=== PATIENT | female | born 1990 | race Caucasian/White ===

== ENCOUNTER 2019-03-20 14:42 | Emergency (ER) | payer BC ==
[2019-03-20] MEDS ORDERED: Aspirin 81 MG Tab.Chew PO ONE (14:57)
[2019-03-20] MEDS ORDERED: Labetalol 100 MG/20 ML MDV IVPUSH ONE (14:57)
[2019-03-20] MEDS ORDERED: Sodium Chloride 0.9% 1,000 ML IV SCH (15:00)
[2019-03-20] MEDS ORDERED: LORazepam 2 MG/ML SDV IVPUSH ONE (15:33)
--- NOTE | 2019-03-20 15:35 | EDM.PDOC ---
ED HPI GENERAL MEDICAL PROBLEM - General Chief Complaint: Chest Pain Stated Complaint: CHEST PAIN Time Seen by Provider: 03/20/19 15:35 Source of Information: Reports: Patient - History of Present Illness INITIAL COMMENTS - FREE TEXT/NARRATIVE: HISTORY AND PHYSICAL: History of present illness: [Patient with history of anxiety and hypertension/preeclampsia per low presents with intermittent hypertension and chest pain over the last month currently pain is 2 out of 10 described as tight feeling] Pressure was initially elevated on arrival but did come down on its own without any treatment, then with discussion blood pressure did elevate again I provided Ativan at that time currently there is no chest pain patient is comfortable feeling much better and her blood pressure is 118/80, patient currently lives a house move as a stressor she is currently moving across town to a new house was purchased recently Currently has no fever nausea vomiting chills sweats no chest pain shortness breath headache dizziness palpitation no bowel or urine symptoms Review of systems: As per history of present illness and below otherwise all systems reviewed and negative. Past medical history: As per history of present illness and as reviewed below otherwise noncontributory. Surgical history: As per history of present illness and as reviewed below otherwise noncontributory. Social history: No reported history of drug or alcohol abuse. Family history: As per history of present illness and as reviewed below otherwise noncontributory. Physical exam: HEENT: Atraumatic, normocephalic, pupils reactive, negative for conjunctival pallor or scleral icterus, mucous membranes moist, throat clear, neck supple, nontender, trachea midline. Lungs: Clear to auscultation, breath sounds equal bilaterally, chest nontender. Heart: S1S2, regular, negative for clicks, rubs, or JVD. Abdomen: Soft, nondistended, nontender. Negative for masses or hepatosplenomegaly. Negative for costovertebral tenderness. Pelvis: Stable nontender. Genitourinary: Deferred. Rectal: Deferred. Extremities: Atraumatic, negative for cords or calf pain. Neurovascular unremarkable. Neuro: Awake, alert, oriented. Cranial nerves II through XII unremarkable. Cerebellum unremarkable. Motor and sensory unremarkable throughout. Exam nonfocal. Diagnostics: [TBC CMP UA troponin EKG Chest 1 view ] Therapeutics: Normal saline Aspirin 324 mg chewable ] Ativan 0.5 mg IV Ativan 0.5 mg by mouth twice a day when necessary #10 no refill Follow-up with primary care Impression: [Anxiety ] Definitive disposition and diagnosis as appropriate pending reevaluation and review of above. left chest, mid chest Pain Score (Numeric/FACES): 4 - Related Data Allergies Allergy/AdvReac Type Severity Reaction Status Date / Time latex Allergy Hives Verified 03/20/19 14:56 Home Meds: Home Meds Doxylamine Succinate [Unisom] 1 tab PO DAILY PRN 03/27/18 [History] Metoprolol Succinate 25 mg PO DAILY 03/20/19 [History] Norgestimate-Ethinyl Estradiol [Sprintec 28 Day Tablet] 1 mg PO DAILY 03/20/19 [ History] Sertraline [Zoloft] 50 mg PO DAILY 03/20/19 [History] Past Medical History - Past Health History Medical/Surgical History: Denies Medical/Surgical History HEENT History: Reports: None Cardiovascular History: Reports: None Respiratory History: Reports: None Gastrointestinal History: Reports: GERD Genitourinary History: Reports: UTI, Recurrent [employer] SURVEYOR History: Reports: Other (See Below), Other [employer] SURVEYOR History: history of HTN in with current and last Musculoskeletal History: Reports: None Neurological History: Reports: None Psychiatric History: Reports: Depression Endocrine/Metabolic History: Reports: None Hematologic History: Reports: None Immunologic History: Reports: None Oncologic (Cancer) History: Reports: None Dermatologic History: Reports: None - Infectious Disease History Infectious Disease History: Reports: None Social & Family History - Family History Family Medical History: Noncontributory - Tobacco Use Smoking Status *Q: Current Some Day Smoker Years of Tobacco use: 10 Packs/Tins Daily: 0.5 - Caffeine Use Caffeine Use: Reports: Coffee - Recreational Drug Use Recreational Drug Use: No ED ROS GENERAL - Review of Systems Review Of Systems: See Below ED EXAM, GENERAL - Physical Exam Exam: See Below Course - Vital Signs Last Recorded V/S: Last Vital Signs Temp 97.1 F 03/20/19 14:46 Pulse 78 03/20/19 16:20 Resp 16 03/20/19 16:20 BP 118/84 03/20/19 16:20 Pulse Ox 96 03/20/19 16:20 - Orders/Labs/Meds Orders: Active Orders 24 hr Category Date Time Status EKG Documentation Completion [RC] STAT Care 03/20/19 14:58 Active DRUG SCREEN, URINE [URCHEM] Stat Lab 03/20/19 14:58 Ordered UA RFX MAYO AND CULT IF INDIC [URIN] Stat Lab 03/20/19 14:58 Ordered Sodium Chloride 0.9% [Normal Saline] 1,000 ml Med 03/20/19 15:00 Active IV STAT Medication Orders Sodium Chloride (Normal Saline) 1,000 mls @ 125 mls/hr IV STAT JAY Last Admin: 03/20/19 15:26 Dose: 125 mls/hr Labs: Laboratory Tests 03/20/19 03/20/19 Range/Units 15:08 15:08 WBC 4.66 (4.0-11.0) K/uL RBC 4.67 (4.30-5.90) M/uL Hgb 14.8 (12.0-16.0) g/dL Hct 43.4 (36.0-46.0) % MCV 92.9 (80.0-98.0) fL MCH 31.7 (27.0-32.0) pg MCHC 34.1 (31.0-37.0) g/dL RDW Std Deviation 43.7 (28.0-62.0) fl RDW Coeff of Harman 13 (11.0-15.0) % Plt Count 267 (150-400) K/uL MPV 9.80 (7.40-12.00) fL Neut % (Auto) 41.9 L (48.0-80.0) % Lymph % (Auto) 47.4 H (16.0-40.0) % [place] % (Auto) 7.5 (0.0-15.0) % Eos % (Auto) 3.0 (0.0-7.0) % Baso % (Auto) 0.2 (0.0-1.5) % Neut # (Auto) 2.0 (1.4-5.7) K/uL Lymph # (Auto) 2.2 (0.6-2.4) K/uL [place] # (Auto) 0.4 (0.0-0.8) K/uL Eos # (Auto) 0.1 (0.0-0.7) K/uL Baso # (Auto) 0.0 (0.0-0.1) K/uL Nucleated RBC % 0.0 /100WBC Nucleated RBCs # 0 K/uL Sodium 139 (136-145) mmol/L Potassium 3.6 (3.5-5.1) mmol/L Chloride 106 (98-107) mmol/L Carbon Dioxide 22.0 (21.0-32.0) mmol/L BUN 11 (7.0-18.0) mg/dL Creatinine 0.7 (0.6-1.0) mg/dL Est Cr Clr Drug Dosing 100.98 mL/min Estimated GFR (MDRD) > 60.0 ml/min Glucose 103 (74-106) mg/dL Calcium 9.4 (8.5-10.1) mg/dL Total Bilirubin 0.6 (0.2-1.0) mg/dL AST 14 L (15-37) IU/L ALT 21 (14-63) IU/L Alkaline Phosphatase 55 (46-116) U/L Troponin I < 0.050 (0.000-0.056) ng/mL Total Protein 7.4 (6.4-8.2) g/dL Albumin 4.1 (3.4-5.0) g/dL Globulin 3.3 (2.6-4.0) g/dL Albumin/Globulin Ratio 1.2 (0.9-1.6) Meds: Medications Generic Name Dose Route Start Last Admin Trade Name Oskarq PRN Reason Stop Dose Admin Sodium Chloride 1,000 mls @ 125 mls/hr 03/20/19 15:00 03/20/19 15:26 Normal Saline IV 125 mls/hr STAT JAY Administration Discontinued Medications Generic Name Dose Route Start Last Admin Trade Name Freq PRN Reason Stop Dose Admin Aspirin 324 mg 03/20/19 14:57 03/20/19 15:24 Aspirin PO 03/20/19 14:58 324 mg ONETIME ONE Administration Labetalol HCl 20 mg 03/20/19 14:57 03/20/19 16:22 Normodyne IVPUSH 03/20/19 14:58 Not Given ONETIME ONE Protocol Lorazepam 0.5 mg 03/20/19 15:33 03/20/19 15:38 Ativan IVPUSH 03/20/19 15:34 0.5 mg ONETIME ONE Administration Departure - Departure Time of Disposition: 16:29 Disposition: Home, Self-Care 01 Condition: Good Clinical Impression: Anxiety - Discharge Information Referrals: PCP,Unknown [Primary Care Provider] - Forms: ED Department Discharge Additional Instructions: Medication as prescribed Return if symptoms persist or worsen Follow-up with primary care in 2 weeks sooner as needed The following information is given to patients seen in the emergency department who are being discharged to home. This information is to outline your options for follow-up care. We provide all patients seen in our emergency department with a follow-up referral. The need for follow-up, as well as the timing and circumstances, are variable depending upon the specifics of your emergency department visit. If you don't have a primary care physician on staff, we will provide you with a referral. We always advise you to contact your personal physician following an emergency department visit to inform them of the circumstance of the visit and for follow-up with them and/or the need for any referrals to a consulting specialist. The emergency department will also refer you to a specialist when appropriate. This referral assures that you have the opportunity for follow-up care with a specialist. All of these measure are taken in an effort to provide you with optimal care, which includes your follow-up. Under all circumstances we always encourage you to contact your private physician who remains a resource for coordinating your care. When calling for follow-up care, please make the office aware that this follow-up is from your recent emergency room visit. If for any reason you are refused follow-up, please contact the [facility] emergency department at and asked to speak to the emergency department charge nurse. - My Orders Last 24 Hours: My Active Orders 03/20/19 14:58 EKG Documentation Completion [RC] STAT DRUG SCREEN, URINE [URCHEM] Stat UA RFX MAYO AND CULT IF INDIC [URIN] Stat 03/20/19 15:00 Sodium Chloride 0.9% [Normal Saline] 1,000 ml IV STAT - Assessment/Plan Last 24 Hours: My Active Orders 03/20/19 14:58 EKG Documentation Completion [RC] STAT DRUG SCREEN, URINE [URCHEM] Stat UA RFX MAYO AND CULT IF INDIC [URIN] Stat 03/20/19 15:00 Sodium Chloride 0.9% [Normal Saline] 1,000 ml IV STAT
[2019-03-20 15:43] LABS: CHLORIDE,CL 106 mmol/L (98-107); SODIUM,NA 139 mmol/L (136-145)
--- NOTE | 2019-03-20 16:18 | CR ---
INDICATION: Chest pain, shortness of breath TECHNIQUE: Chest radiograph 1 view COMPARISON: None FINDINGS: Mediastinum: The mediastinum is normal in appearance. The heart silhouette is normal in size and morphology. Lung: Both lungs are unremarkable in appearance. No sign of pleural effusion seen. No pneumothorax is identified. IMPRESSION: 1. No acute cardiopulmonary disease is seen. Dictated by: Ephraim Johnson MD @ 03/20/2019 16:16:36 (Electronically Signed)
== END 2019-03-20 16:42 | disposition home or self-care (01) ==
LOC: MW.ED 14:42
DX: F41.9 Anxiety disorder, unspecified (principal); F17.210 Nicotine dependence, cigarettes, uncomplicated; Z91.040 Latex allergy status; Z79.899 Other long term (current) drug therapy
CPT/HCPCS: 36415; 71045; 80053; 84484; 85025; 93005; 96361; 96374; 99285; A9270; J2060; J3490; J7040

== ENCOUNTER 2021-05-09 17:33 | Observation (INO) | payer BC ==
[2021-05-09] MEDS ORDERED: cefTRIAXone 1 GM in Premix Bag 1 BAG IV ONE (19:02)
[2021-05-09] MEDS ORDERED: Lactated Ringers 1,000 ML IV SCH (19:15)
[2021-05-09] MEDS ORDERED: Acetaminophen 500 MG Tab PO ONE (19:44)
[2021-05-09] MEDS ORDERED: Aspirin 81 MG Tab.Chew PO ONE (22:32)
--- NOTE | 2021-05-09 23:09 | US ---
INDICATION: Right flank pain. Thirty-four weeks . TECHNIQUE: Ultrasound abdomen limited. Sonographic images of the kidneys and bladder were obtained using sierra-scale and color Doppler images. COMPARISON: Renal ultrasound dated 03/27/2018. FINDINGS: Right kidney: The right kidney measures 11.5 cm in length. No renal calculi or significant hydronephrosis is identified. Left kidney: The left kidney measures 11.0 cm in length. No renal calculi or significant hydronephrosis is identified. Bladder: Decompressed. No bladder calculi identified. IMPRESSION: No renal calculi or significant hydronephrosis identified bilaterally. Dictated by Jessenia Grande MD @ 05/09/2021 11:07:30 PM (Electronically Signed)
[2021-05-09] MEDS: Morphine 2 MG/ML SYRINGE IVPUSH PRN (23:13)
[2021-05-09] MEDS: Lactated Ringers 1,000 ML IV SCH (23:13)
[2021-05-09 23:18] LABS: BLOOD UREA NITROGEN,BUN 3 mg/dL (7.0-18.0); CARBON DIOXIDE,CO2 22.4 mmol/L (21.0-32.0); CHLORIDE,CL 105 mmol/L (98-107); GLUCOSE RANDOM 80 mg/dL (74-106); POTASSIUM,K 3.5 mmol/L (3.5-5.1); SODIUM,NA 137 mmol/L (136-145)
[2021-05-10] MEDS: Morphine 2 MG/ML SYRINGE IVPUSH PRN ×8 (00:20→22:10)
[2021-05-10] MEDS: Lactated Ringers 1,000 ML IV SCH ×3 (06:59→22:55)
--- NOTE | 2021-05-10 08:44 | HP ---
DATE OF : 1990 PRIMARY CARE PHYSICIAN: None PCP CHIEF COMPLAINT: Back pain. HISTORY: This is a 30-year-old female, G6, P2-0-3-2. She is currently at 34 5/7 weeks gestation. She has had uncomplicated care to this point with a history of depression and a history of preeclampsia, being treated with duloxetine and aspirin respectively. She did have a history of kidney stones with prior . She reports over the past 2 days, a dull, aching, upper right back pain. This does not extend into her shoulder. It is not associated with nausea and vomiting. It is not associated with eating. She denies dysuria or malodorous urine. Starting this morning, she began to have more severe and intense pain in the right flank area that would come in waves, and this has persisted and worsened through the day despite Tylenol and tub bath and motion, none of which resulted in any improvement in her pain. She states the pain is worse than labor. She reports good movement. She denies awareness of contractions. She denies any abnormal vaginal discharge. PAST MEDICAL HISTORY: Significant for history of gestational hypertension, preeclampsia, depression, frequent urinary tract infections, optic neuritis in 2019. 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 In 1991, she had myringotomy tubes. August of 2018, she had wisdom tooth extraction. Prior hospitalizations include childbirth, pneumonia. In 2015, she was admitted with pyelonephritis, and 2019, optic neuritis. PAST OBSTETRICAL HISTORY: In 2007, 2008, and 2011, she had spontaneous abortions. She delivered a 6-pound 12-ounce female in 2016 and a 6-pound 15-ounce male in 2018. FAMILY HISTORY: Significant for hypertension in her mother. Father with COPD, heart disease, [place]. Siblings alive and well. Maternal grandfather, [place]. Maternal grandmother, lung cancer. Maternal grandfather, heart attack. Maternal grandmother, lung and breast cancer, brain aneurysm. Maternal aunt alive and well. Paternal aunt, fibrocystic breast and autoimmune diseases. She has a daughter with autism. Her son is alive and well. SOCIAL HISTORY: She is to her , Dez. She is sexually active. She denies use of tobacco, alcohol, or street drugs. 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 MEDICATIONS: Her current medications are duloxetine 20 mg delayed release, which she is taking every 2 to 3 days. She is trying to discontinue it prior to delivery. She has taken Tylenol today for her pain. She takes a vitamin and an 81 mg delayed-release aspirin. ALLERGIES: Latex and kiwi, which cause rash and hives. REVIEW OF SYSTEMS: CONSTITUTIONAL: Negative for headache, visual changes, shortness of breath, chest pain, dyspnea on exertion, palpitations. DERMATOLOGIC: Negative for rash. Negative for skin changes. RHEUMATOLOGY: Negative. CARDIOLOGY: Negative except related to . PULMONOLOGY: Negative. PHYSICAL EXAMINATION: VITAL SIGNS: Temperature is 97.6, blood pressure 126/82, pulse of 102. heart tones 130s, moderate variability, accelerations present. Linganore shows uterine irritability with contractions every 2 to 5 minutes. GENERAL: She is alert and oriented. NECK: Supple, without lymphadenopathy or thyromegaly. LUNGS: Clear bilaterally. CARDIOVASCULAR: Regular rate without murmur. ABDOMEN: Soft, gravid, nontender. Appropriate for gestational age. Fundus is nontender. She has no CVA tenderness, but the area of pain, which she reports as a colicky intense pain, is in the right flank area. EXTREMITIES: Show trace edema. VAGINA: 1 cm and thick. ASSESSMENT AND PLAN: A 34 5/7 week intrauterine with right flank pain consistent with nephrolithiasis. Renal ultrasound does not show severe hydronephrosis. Urinalysis is equivocal. She does have a history of pyelonephritis. Therefore, we will proceed with Rocephin IV. We will get a CBC, CMP, and send urine for culture. Treat pain with IV morphine at this time, and we will strain urine. She may have intermittent monitoring. If contractions intensify or she has lower pelvic pain or change in discharge, we will recheck her cervix. However, she does not appear to have labor at this time. Due to the history of preeclampsia, we will continue on 81 mg aspirin daily. Regarding her depression, we will hold duloxetine at this time at her request. RONALD SHEPHERD /[id number]
[2021-05-10] MEDS ORDERED: Acetaminophen/oxyCODONE 325-5 MG Tab PO PRN (15:06)
--- NOTE | 2021-05-10 15:40 | PCM.PN ---
- General Info Date of Service: 05/10/21 Subjective Update: Patient is tolerating a regular diet. She is still having right flank pain and doesn't feel morphine is working as well. CBC still pending from noon. Functional Status: Reports: Tolerating Diet, Ambulating, Urinating - Review of Systems General: Reports: Fatigue. Denies: Fever, Weakness Pulmonary: Denies: Shortness of Breath Cardiovascular: Denies: Chest Pain, Palpitations, Lightheadedness Gastrointestinal: Denies: Nausea, Vomiting Genitourinary: Reports: Flank Pain (right side) Musculoskeletal: Reports: No Symptoms Skin: Reports: No Symptoms Neurological: Reports: No Symptoms - Patient Data Weight - Most Recent: 65.317 kg Lab Results Last 24 Hours: Laboratory Results - last 24 hr 05/09/21 05/09/21 05/09/21 Range/Units 18:20 22:49 22:49 WBC 18.09 H (4.0-11.0) K/uL RBC 3.56 L (4.30-5.90) M/uL Hgb 11.1 L (12.0-16.0) g/dL Hct 32.3 L (36.0-46.0) % MCV 90.7 (80.0-98.0) fL MCH 31.2 (27.0-32.0) pg MCHC 34.4 (31.0-37.0) g/dL RDW Std Deviation 43.5 (28.0-62.0) fl RDW Coeff of Harman 13 (11.0-15.0) % Plt Count 261 (150-400) K/uL MPV 10.20 (7.40-12.00) fL Neut % (Auto) 65.0 (48.0-80.0) % Lymph % (Auto) 24.1 (16.0-40.0) % Forrest % (Auto) 9.4 (0.0-15.0) % Eos % (Auto) 1.3 (0.0-7.0) % Baso % (Auto) 0.2 (0.0-1.5) % Neut # (Auto) 11.8 H (1.4-5.7) K/uL Lymph # (Auto) 4.4 H (0.6-2.4) K/uL Forrest # (Auto) 1.7 H (0.0-0.8) K/uL Eos # (Auto) 0.2 (0.0-0.7) K/uL Baso # (Auto) 0.0 (0.0-0.1) K/uL Nucleated RBC % 0.0 /100WBC Nucleated RBCs # 0 K/uL Sodium 137 (136-145) mmol/L Potassium 3.5 (3.5-5.1) mmol/L Chloride 105 (98-107) mmol/L Carbon Dioxide 22.4 (21.0-32.0) mmol/L BUN 3 L (7.0-18.0) mg/dL Creatinine 0.6 (0.6-1.0) mg/dL Est Cr Clr Drug Dosing 121.13 mL/min Estimated GFR (MDRD) > 60.0 ml/min Glucose 80 (74-106) mg/dL Calcium 8.7 (8.5-10.1) mg/dL Total Bilirubin 0.2 (0.2-1.0) mg/dL AST 10 L (15-37) IU/L ALT 9 L (14-63) IU/L Alkaline Phosphatase 188 H (46-116) U/L Total Protein 5.5 L (6.4-8.2) g/dL Albumin 2.3 L (3.4-5.0) g/dL Globulin 3.2 (2.6-4.0) g/dL Albumin/Globulin Ratio 0.7 L (0.9-1.6) Urine Color YELLOW Urine Appearance SLT CLOUDY Urine pH 6.5 (5.0-8.0) Ur Specific [place] 1.010 (1.001-1.035) Urine Protein NEGATIVE (NEGATIVE) mg/dL Urine Glucose (UA) NEGATIVE (NEGATIVE) mg/dL Urine Ketones NEGATIVE (NEGATIVE) mg/dL Urine Occult Blood NEGATIVE (NEGATIVE) Urine Nitrite NEGATIVE (NEGATIVE) Urine Bilirubin NEGATIVE (NEGATIVE) Urine Urobilinogen 0.2 (<2.0) EU/dL Ur Leukocyte Esterase SMALL H (NEGATIVE) Urine RBC 0-2 (0-2/HPF) Urine WBC 4-8 (0-5/HPF) Ur Epithelial Cells MODERATE (NONE-FEW) Urine Bacteria 1+ H (NEGATIVE) Blood Type Antibody Screen 05/09/21 Range/Units 22:49 WBC (4.0-11.0) K/uL RBC (4.30-5.90) M/uL Hgb (12.0-16.0) g/dL Hct (36.0-46.0) % MCV (80.0-98.0) fL MCH (27.0-32.0) pg MCHC (31.0-37.0) g/dL RDW Std Deviation (28.0-62.0) fl RDW Coeff of Harman (11.0-15.0) % Plt Count (150-400) K/uL MPV (7.40-12.00) fL Neut % (Auto) (48.0-80.0) % Lymph % (Auto) (16.0-40.0) % Forrest % (Auto) (0.0-15.0) % Eos % (Auto) (0.0-7.0) % Baso % (Auto) (0.0-1.5) % Neut # (Auto) (1.4-5.7) K/uL Lymph # (Auto) (0.6-2.4) K/uL Forrest # (Auto) (0.0-0.8) K/uL Eos # (Auto) (0.0-0.7) K/uL Baso # (Auto) (0.0-0.1) K/uL Nucleated RBC % /100WBC Nucleated RBCs # K/uL Sodium (136-145) mmol/L Potassium (3.5-5.1) mmol/L Chloride (98-107) mmol/L Carbon Dioxide (21.0-32.0) mmol/L BUN (7.0-18.0) mg/dL Creatinine (0.6-1.0) mg/dL Est Cr Clr Drug Dosing mL/min Estimated GFR (MDRD) ml/min Glucose (74-106) mg/dL Calcium (8.5-10.1) mg/dL Total Bilirubin (0.2-1.0) mg/dL AST (15-37) IU/L ALT (14-63) IU/L Alkaline Phosphatase (46-116) U/L Total Protein (6.4-8.2) g/dL Albumin (3.4-5.0) g/dL Globulin (2.6-4.0) g/dL Albumin/Globulin Ratio (0.9-1.6) Urine Color Urine Appearance Urine pH (5.0-8.0) Ur Specific [place] (1.001-1.035) Urine Protein (NEGATIVE) mg/dL Urine Glucose (UA) (NEGATIVE) mg/dL Urine Ketones (NEGATIVE) mg/dL Urine Occult Blood (NEGATIVE) Urine Nitrite (NEGATIVE) Urine Bilirubin (NEGATIVE) Urine Urobilinogen (<2.0) EU/dL Ur Leukocyte Esterase (NEGATIVE) Urine RBC (0-2/HPF) Urine WBC (0-5/HPF) Ur Epithelial Cells (NONE-FEW) Urine Bacteria (NEGATIVE) Blood Type O POSITIVE Antibody Screen NEGATIVE Med Orders - Current: Current Medications Lactated Ringer's (Ringers, Lactated) 1,000 mls @ 999 mls/hr IV ASDIRECTED [facility] Last Admin: 05/09/21 20:25 Dose: 999 mls/hr Documented by: Lactated Ringer's (Ringers, Lactated) 1,000 mls @ 125 mls/hr IV ASDIRECTED [facility] Last Admin: 05/10/21 14:44 Dose: 125 mls/hr Documented by: Morphine Sulfate (Morphine 2 Mg/Ml Syringe) 2 mg IVPUSH Q1H PRN PRN Reason: Pain (severe 7-10) Last Admin: 05/10/21 13:22 Dose: 2 mg Documented by: Oxycodone/Acetaminophen (Acetaminophen/Oxycodone 325-5 Mg Tab) 2 tab PO Q6H PRN PRN Reason: Pain (severe 7-10) Last Admin: 05/10/21 15:32 Dose: 2 tab Documented by: Discontinued Medications Acetaminophen (Acetaminophen 500 Mg Tab) 1,000 mg PO ONETIME ONE Stop: 05/09/21 19:45 Last Admin: 05/09/21 19:58 Dose: 1,000 mg Documented by: Aspirin (Aspirin 81 Mg Tab.Chew) 81 mg PO ONETIME ONE Stop: 05/09/21 22:33 Last Admin: 05/10/21 00:17 Dose: 81 mg Documented by: Ceftriaxone Sodium/Dextrose 1 (gm/ Premix) 50 mls @ 100 mls/hr IV ONETIME ONE Stop: 05/09/21 19:31 Last Admin: 05/09/21 19:45 Dose: 100 mls/hr Documented by: - Exam General: Alert, Oriented Lungs: Normal Respiratory Effort Cardiovascular: Regular Rate, Regular Rhythm GI/Abdominal Exam: Normal Bowel Sounds, Soft Back Exam: CVA Tenderness (R). No: CVA Tenderness (L) Extremities: No: Pedal Edema, Maikel's Sign Skin: Warm, Dry, Intact Neurological: No New Focal Deficit Psy/Mental Status: Alert - Patient Data Lab Results Last 24 hrs: Laboratory Results - last 24 hr 05/09/21 05/09/21 05/09/21 Range/Units 18:20 22:49 22:49 WBC 18.09 H (4.0-11.0) K/uL RBC 3.56 L (4.30-5.90) M/uL Hgb 11.1 L (12.0-16.0) g/dL Hct 32.3 L (36.0-46.0) % MCV 90.7 (80.0-98.0) fL MCH 31.2 (27.0-32.0) pg MCHC 34.4 (31.0-37.0) g/dL RDW Std Deviation 43.5 (28.0-62.0) fl RDW Coeff of Harman 13 (11.0-15.0) % Plt Count 261 (150-400) K/uL MPV 10.20 (7.40-12.00) fL Neut % (Auto) 65.0 (48.0-80.0) % Lymph % (Auto) 24.1 (16.0-40.0) % Forrest % (Auto) 9.4 (0.0-15.0) % Eos % (Auto) 1.3 (0.0-7.0) % Baso % (Auto) 0.2 (0.0-1.5) % Neut # (Auto) 11.8 H (1.4-5.7) K/uL Lymph # (Auto) 4.4 H (0.6-2.4) K/uL Forrest # (Auto) 1.7 H (0.0-0.8) K/uL Eos # (Auto) 0.2 (0.0-0.7) K/uL Baso # (Auto) 0.0 (0.0-0.1) K/uL Nucleated RBC % 0.0 /100WBC Nucleated RBCs # 0 K/uL Sodium 137 (136-145) mmol/L Potassium 3.5 (3.5-5.1) mmol/L Chloride 105 (98-107) mmol/L Carbon Dioxide 22.4 (21.0-32.0) mmol/L BUN 3 L (7.0-18.0) mg/dL Creatinine 0.6 (0.6-1.0) mg/dL Est Cr Clr Drug Dosing 121.13 mL/min Estimated GFR (MDRD) > 60.0 ml/min Glucose 80 (74-106) mg/dL Calcium 8.7 (8.5-10.1) mg/dL Total Bilirubin 0.2 (0.2-1.0) mg/dL AST 10 L (15-37) IU/L ALT 9 L (14-63) IU/L Alkaline Phosphatase 188 H (46-116) U/L Total Protein 5.5 L (6.4-8.2) g/dL Albumin 2.3 L (3.4-5.0) g/dL Globulin 3.2 (2.6-4.0) g/dL Albumin/Globulin Ratio 0.7 L (0.9-1.6) Urine Color YELLOW Urine Appearance SLT CLOUDY Urine pH 6.5 (5.0-8.0) Ur Specific [place] 1.010 (1.001-1.035) Urine Protein NEGATIVE (NEGATIVE) mg/dL Urine Glucose (UA) NEGATIVE (NEGATIVE) mg/dL Urine Ketones NEGATIVE (NEGATIVE) mg/dL Urine Occult Blood NEGATIVE (NEGATIVE) Urine Nitrite NEGATIVE (NEGATIVE) Urine Bilirubin NEGATIVE (NEGATIVE) Urine Urobilinogen 0.2 (<2.0) EU/dL Ur Leukocyte Esterase SMALL H (NEGATIVE) Urine RBC 0-2 (0-2/HPF) Urine WBC 4-8 (0-5/HPF) Ur Epithelial Cells MODERATE (NONE-FEW) Urine Bacteria 1+ H (NEGATIVE) Blood Type Antibody Screen 05/09/21 Range/Units 22:49 WBC (4.0-11.0) K/uL RBC (4.30-5.90) M/uL Hgb (12.0-16.0) g/dL Hct (36.0-46.0) % MCV (80.0-98.0) fL MCH (27.0-32.0) pg MCHC (31.0-37.0) g/dL RDW Std Deviation (28.0-62.0) fl RDW Coeff of Harman (11.0-15.0) % Plt Count (150-400) K/uL MPV (7.40-12.00) fL Neut % (Auto) (48.0-80.0) % Lymph % (Auto) (16.0-40.0) % Forrest % (Auto) (0.0-15.0) % Eos % (Auto) (0.0-7.0) % Baso % (Auto) (0.0-1.5) % Neut # (Auto) (1.4-5.7) K/uL Lymph # (Auto) (0.6-2.4) K/uL Forrest # (Auto) (0.0-0.8) K/uL Eos # (Auto) (0.0-0.7) K/uL Baso # (Auto) (0.0-0.1) K/uL Nucleated RBC % /100WBC Nucleated RBCs # K/uL Sodium (136-145) mmol/L Potassium (3.5-5.1) mmol/L Chloride (98-107) mmol/L Carbon Dioxide (21.0-32.0) mmol/L BUN (7.0-18.0) mg/dL Creatinine (0.6-1.0) mg/dL Est Cr Clr Drug Dosing mL/min Estimated GFR (MDRD) ml/min Glucose (74-106) mg/dL Calcium (8.5-10.1) mg/dL Total Bilirubin (0.2-1.0) mg/dL AST (15-37) IU/L ALT (14-63) IU/L Alkaline Phosphatase (46-116) U/L Total Protein (6.4-8.2) g/dL Albumin (3.4-5.0) g/dL Globulin (2.6-4.0) g/dL Albumin/Globulin Ratio (0.9-1.6) Urine Color Urine Appearance Urine pH (5.0-8.0) Ur Specific [place] (1.001-1.035) Urine Protein (NEGATIVE) mg/dL Urine Glucose (UA) (NEGATIVE) mg/dL Urine Ketones (NEGATIVE) mg/dL Urine Occult Blood (NEGATIVE) Urine Nitrite (NEGATIVE) Urine Bilirubin (NEGATIVE) Urine Urobilinogen (<2.0) EU/dL Ur Leukocyte Esterase (NEGATIVE) Urine RBC (0-2/HPF) Urine WBC (0-5/HPF) Ur Epithelial Cells (NONE-FEW) Urine Bacteria (NEGATIVE) Blood Type O POSITIVE Antibody Screen NEGATIVE Result Diagrams: 05/09/21 22:49 05/09/21 22:49 Sepsis Event Note - Evaluation Sepsis Screening Result: No Definite Risk - Problem List & Annotations (1) Renal colic on right side SNOMED Code(s): 5900503 Code(s): N23 - UNSPECIFIED RENAL COLIC Status: Acute Current Visit: Yes - Problem List Review Problem List Initiated/Reviewed/Updated: Yes - My Orders Last 24 Hours: My Active Orders 05/10/21 12:00 CBC WITH AUTO DIFF [HEME] Routine 05/10/21 15:06 Acetaminophen/oxyCODONE [Percocet 325-5 MG] 2 tab PO Q6H PRN - Assessment Assessment:: 35 week IUP Right renal colic - Plan Plan:: Continue iv hydration, will trial switching to oral pain medications to see if cover her better. FHTs 120s. No evidence of contractions. CBC pending.
[2021-05-10] MEDS: Ondansetron 4 MG/2 ML SDV IVPUSH PRN (18:47)
[2021-05-10] MEDS: Metoclopramide 10 MG/2 ML SDV IVPUSH PRN (22:07)
[2021-05-10] MEDS: Acetaminophen/oxyCODONE 325-5 MG Tab PO PRN (23:31)
[2021-05-11] MEDS: Ondansetron 4 MG/2 ML SDV IVPUSH PRN ×3 (01:27→18:35)
[2021-05-11] MEDS: Morphine 2 MG/ML SYRINGE IVPUSH PRN ×4 (01:30→15:35)
[2021-05-11] MEDS: Acetaminophen/oxyCODONE 325-5 MG Tab PO PRN ×5 (04:43→22:11)
[2021-05-11] MEDS: Lactated Ringers 1,000 ML IV SCH ×2 (07:09→15:13)
--- NOTE | 2021-05-11 08:34 | PCM.PN ---
- General Info Date of Service: 05/11/21 Subjective Update: Patient is tolerating a regular diet. She is still having right flank pain but with the oral pain meds, does reduce the pain to 2/10. The oral medication does make her nauseated, so will premedicate with antiemetics. - Review of Systems General: Denies: Fever Pulmonary: Denies: Shortness of Breath Cardiovascular: Denies: Chest Pain, Palpitations, Lightheadedness Gastrointestinal: Reports: Nausea (with percocet) Genitourinary: Reports: Flank Pain (right side still) Musculoskeletal: Reports: No Symptoms Skin: Reports: No Symptoms Neurological: Reports: No Symptoms - Patient Data Weight - Most Recent: 65.317 kg Lab Results Last 24 Hours: Laboratory Results - last 24 hr 05/10/21 Range/Units 15:35 WBC 12.38 H (4.0-11.0) K/uL RBC 3.30 L (4.30-5.90) M/uL Hgb 10.0 L (12.0-16.0) g/dL Hct 30.4 L (36.0-46.0) % MCV 92.1 (80.0-98.0) fL MCH 30.3 (27.0-32.0) pg MCHC 32.9 (31.0-37.0) g/dL RDW Std Deviation 45.0 (28.0-62.0) fl RDW Coeff of Harman 13 (11.0-15.0) % Plt Count 247 (150-400) K/uL MPV 9.90 (7.40-12.00) fL Neut % (Auto) 67.9 (48.0-80.0) % Lymph % (Auto) 22.9 (16.0-40.0) % Amelia % (Auto) 7.8 (0.0-15.0) % Eos % (Auto) 1.3 (0.0-7.0) % Baso % (Auto) 0.1 (0.0-1.5) % Neut # (Auto) 8.4 H (1.4-5.7) K/uL Lymph # (Auto) 2.8 H (0.6-2.4) K/uL Amelia # (Auto) 1.0 H (0.0-0.8) K/uL Eos # (Auto) 0.2 (0.0-0.7) K/uL Baso # (Auto) 0.0 (0.0-0.1) K/uL Nucleated RBC % 0.0 /100WBC Nucleated RBCs # 0 K/uL Med Orders - Current: Current Medications Lactated Ringer's (Ringers, Lactated) 1,000 mls @ 999 mls/hr IV ASDIRECTED [facility] Last Admin: 05/09/21 20:25 Dose: 999 mls/hr Documented by: Lactated Ringer's (Ringers, Lactated) 1,000 mls @ 125 mls/hr IV ASDIRECTED [facility] Last Admin: 05/11/21 07:09 Dose: 125 mls/hr Documented by: Metoclopramide HCl (Metoclopramide 10 Mg/2 Ml Sdv) 5 mg IVPUSH Q6H PRN PRN Reason: Nausea Last Admin: 05/10/21 22:07 Dose: 5 mg Documented by: Morphine Sulfate (Morphine 2 Mg/Ml Syringe) 2 mg IVPUSH Q1H PRN PRN Reason: Pain (severe 7-10) Last Admin: 05/11/21 08:07 Dose: 2 mg Documented by: Ondansetron HCl (Ondansetron 4 Mg/2 Ml Sdv) 4 mg IVPUSH Q6H PRN PRN Reason: Nausea/Vomiting Last Admin: 05/11/21 08:10 Dose: 4 mg Documented by: Oxycodone/Acetaminophen (Acetaminophen/Oxycodone 325-5 Mg Tab) 1 tab PO Q4H PRN PRN Reason: Pain (moderate 4-6) Last Admin: 05/11/21 04:43 Dose: 1 tab Documented by: Discontinued Medications Acetaminophen (Acetaminophen 500 Mg Tab) 1,000 mg PO ONETIME ONE Stop: 05/09/21 19:45 Last Admin: 05/09/21 19:58 Dose: 1,000 mg Documented by: Aspirin (Aspirin 81 Mg Tab.Chew) 81 mg PO ONETIME ONE Stop: 05/09/21 22:33 Last Admin: 05/10/21 00:17 Dose: 81 mg Documented by: Ceftriaxone Sodium/Dextrose 1 (gm/ Premix) 50 mls @ 100 mls/hr IV ONETIME ONE Stop: 05/09/21 19:31 Last Admin: 05/09/21 19:45 Dose: 100 mls/hr Documented by: Oxycodone/Acetaminophen (Acetaminophen/Oxycodone 325-5 Mg Tab) 2 tab PO Q6H PRN PRN Reason: Pain (severe 7-10) Last Admin: 05/10/21 15:32 Dose: 2 tab Documented by: - Exam General: Alert, Oriented Lungs: Normal Respiratory Effort Cardiovascular: Regular Rate, Regular Rhythm GI/Abdominal Exam: Normal Bowel Sounds, Soft, Non-Tender Back Exam: CVA Tenderness (R) (much less discomfort today on exam) Extremities: Pedal Edema (trace). No: Maikel's Sign Skin: Warm, Dry, Intact Neurological: No New Focal Deficit Psy/Mental Status: Alert - Patient Data Lab Results Last 24 hrs: Laboratory Results - last 24 hr 05/10/21 Range/Units 15:35 WBC 12.38 H (4.0-11.0) K/uL RBC 3.30 L (4.30-5.90) M/uL Hgb 10.0 L (12.0-16.0) g/dL Hct 30.4 L (36.0-46.0) % MCV 92.1 (80.0-98.0) fL MCH 30.3 (27.0-32.0) pg MCHC 32.9 (31.0-37.0) g/dL RDW Std Deviation 45.0 (28.0-62.0) fl RDW Coeff of Harman 13 (11.0-15.0) % Plt Count 247 (150-400) K/uL MPV 9.90 (7.40-12.00) fL Neut % (Auto) 67.9 (48.0-80.0) % Lymph % (Auto) 22.9 (16.0-40.0) % Amelia % (Auto) 7.8 (0.0-15.0) % Eos % (Auto) 1.3 (0.0-7.0) % Baso % (Auto) 0.1 (0.0-1.5) % Neut # (Auto) 8.4 H (1.4-5.7) K/uL Lymph # (Auto) 2.8 H (0.6-2.4) K/uL Amelia # (Auto) 1.0 H (0.0-0.8) K/uL Eos # (Auto) 0.2 (0.0-0.7) K/uL Baso # (Auto) 0.0 (0.0-0.1) K/uL Nucleated RBC % 0.0 /100WBC Nucleated RBCs # 0 K/uL Result Diagrams: 05/10/21 15:35 05/09/21 22:49 Sepsis Event Note - Evaluation Sepsis Screening Result: No Definite Risk - Problem List & Annotations (1) Renal colic on right side SNOMED Code(s): 9726855 Code(s): N23 - UNSPECIFIED RENAL COLIC Status: Acute Current Visit: Yes - Problem List Review Problem List Initiated/Reviewed/Updated: Yes - Assessment Assessment:: 35 week IUP Right renal colic - Plan Plan:: Continue iv hydration, NST reactive. Oral pain regimen seems to be working better. Will monitor with premedicating with anti emetics. If this goes well, anticipate discharge to home on oral pain meds, straining urine and close interval clinic follow up. Patient does note that pain is reduced to 2/10 while taking pecocet. She understands will need to stay very well hydrated with oral water intake.
[2021-05-11] MEDS: Metoclopramide 10 MG/2 ML SDV IVPUSH PRN ×2 (11:22→21:10)
[2021-05-12] MEDS: Acetaminophen/oxyCODONE 325-5 MG Tab PO PRN ×3 (01:38→11:26)
[2021-05-12] MEDS: Ondansetron 4 MG Tab.DIS PO PRN ×2 (01:39→08:09)
--- NOTE | 2021-05-12 10:41 | PCM.PN ---
- General Info Date of Service: 05/12/21 Subjective Update: Patient slept last night quite well. Premedicating with antiemetic is covering her nausea very well> The oral pain medication is covering her pain nicely. She feels ready to go home today. Notes good movement. Denies contractions. Denies vaginal bleeding. - Review of Systems General: Denies: Fever, Weakness, Fatigue Pulmonary: Denies: Shortness of Breath Cardiovascular: Denies: Chest Pain, Palpitations, Lightheadedness Gastrointestinal: Denies: Nausea, Vomiting Genitourinary: Reports: Flank Pain (much less with oral natarajan meds) Musculoskeletal: Reports: No Symptoms Skin: Reports: No Symptoms Neurological: Reports: No Symptoms Psychiatric: Reports: No Symptoms - Patient Data Weight - Most Recent: 65.317 kg I&O - Last 24 Hours: Intake & Output 05/11/21 05/12/21 05/12/21 22:59 06:59 14:59 Intake Total 1875 Balance 1875 Med Orders - Current: Current Medications Ondansetron HCl (Ondansetron 4 Mg Tab.Dis) 4 mg PO Q4H PRN PRN Reason: Nausea/Vomiting Last Admin: 05/12/21 08:09 Dose: 4 mg Documented by: Oxycodone/Acetaminophen (Acetaminophen/Oxycodone 325-5 Mg Tab) 1 tab PO Q4H PRN PRN Reason: Pain (moderate 4-6) Last Admin: 05/12/21 07:46 Dose: 1 tab Documented by: Discontinued Medications Acetaminophen (Acetaminophen 500 Mg Tab) 1,000 mg PO ONETIME ONE Stop: 05/09/21 19:45 Last Admin: 05/09/21 19:58 Dose: 1,000 mg Documented by: Aspirin (Aspirin 81 Mg Tab.Chew) 81 mg PO ONETIME ONE Stop: 05/09/21 22:33 Last Admin: 05/10/21 00:17 Dose: 81 mg Documented by: Lactated Ringer's (Ringers, Lactated) 1,000 mls @ 999 mls/hr IV ASDIRECTED [facility] Last Admin: 05/09/21 20:25 Dose: 999 mls/hr Documented by: Ceftriaxone Sodium/Dextrose 1 (gm/ Premix) 50 mls @ 100 mls/hr IV ONETIME ONE Stop: 05/09/21 19:31 Last Admin: 05/09/21 19:45 Dose: 100 mls/hr Documented by: Lactated Ringer's (Ringers, Lactated) 1,000 mls @ 125 mls/hr IV ASDIRECTED [facility] Last Admin: 05/11/21 15:13 Dose: 125 mls/hr Documented by: Metoclopramide HCl (Metoclopramide 10 Mg/2 Ml Sdv) 5 mg IVPUSH Q6H PRN PRN Reason: Nausea Last Admin: 05/11/21 21:10 Dose: 5 mg Documented by: Morphine Sulfate (Morphine 2 Mg/Ml Syringe) 2 mg IVPUSH Q1H PRN PRN Reason: Pain (severe 7-10) Last Admin: 05/11/21 15:35 Dose: 2 mg Documented by: Ondansetron HCl (Ondansetron 4 Mg/2 Ml Sdv) 4 mg IVPUSH Q6H PRN PRN Reason: Nausea/Vomiting Last Admin: 05/11/21 18:35 Dose: 4 mg Documented by: Oxycodone/Acetaminophen (Acetaminophen/Oxycodone 325-5 Mg Tab) 2 tab PO Q6H PRN PRN Reason: Pain (severe 7-10) Last Admin: 05/10/21 15:32 Dose: 2 tab Documented by: - Exam General: Alert, Oriented Lungs: Normal Respiratory Effort Cardiovascular: Regular Rate, Regular Rhythm GI/Abdominal Exam: Normal Bowel Sounds, Soft, Non-Tender Back Exam: Normal Inspection Extremities: Pedal Edema (omkar). No: Maikel's Sign Skin: Warm, Dry, Intact Neurological: No New Focal Deficit Psy/Mental Status: Alert, Normal Affect - Patient Data Result Diagrams: 05/10/21 15:35 05/09/21 22:49 Sepsis Event Note - Evaluation Sepsis Screening Result: No Definite Risk - Problem List & Annotations (1) Renal colic on right side SNOMED Code(s): 7924788 Code(s): N23 - UNSPECIFIED RENAL COLIC Status: Acute Current Visit: Yes - Problem List Review Problem List Initiated/Reviewed/Updated: Yes - My Orders Last 24 Hours: My Active Orders 05/12/21 10:37 Ready for Discharge [RC] PER UNIT ROUTINE - Assessment Assessment:: 35/2 week IUP Right renal colic - Plan Plan:: Had a good night and rested well. Pain is controlled with oral regimen. Feels ready to go home. Emphasized need for continued oral hydration with water (at least 100 oz per day), premedicate with zofran before taking percocet. Warm pack to back as needed. Keep straining urine. Has follow up in clinic tomorrow. Discharge to home today.
== END 2021-05-12 11:15 | disposition home or self-care (01) ==
LOC: MW.OB 17:33 → MW.OBCHECK 17:33 → MW.OB 22:29 → MW.OBCHECK 22:29
PROVIDERS: ADMIT Obstetrics & Gynecology; ATTEND Obstetrics & Gynecology
DX: O99.891 Other specified diseases and conditions complicating pregnancy (principal); O13.3 Gestational [pregnancy-induced] hypertension without significant proteinuria, third trimester; M54.9 Dorsalgia, unspecified; Z3A.34 34 weeks gestation of pregnancy; Z98.890 Other specified postprocedural states
CPT/HCPCS: 36415; 59025; 76775; 80053; 81001; 85025; 86850; 86900; 86901; 87086; A9270; J0696; J2270; J2405; J2765; J7120

== ENCOUNTER 2021-06-09 16:02 | Inpatient (IN) | payer BC ==
[2021-06-09] MEDS ORDERED: Misoprostol 25 MCG (1/4 of 100 MCG) Tab VAG PRN (16:23)
[2021-06-09] MEDS ORDERED: Terbutaline 1 MG/ML SDV SUBCUT PRN (16:23)
[2021-06-09] MEDS ORDERED: Water For Irrigation,Sterile 1,000 ML Container IRR PRN (16:25)
[2021-06-09] MEDS ORDERED: Tranexamic Acid 1,000 MG in Sodium Chloride 0.9% 100 ML IV PRN (16:25)
[2021-06-09] MEDS ORDERED: Lidocaine 1% 50 ML MDV INJECT PRN (16:25)
[2021-06-09] MEDS ORDERED: Sodium Chloride 0.9% 10 ML Syringe FLUSH PRN (16:25)
[2021-06-09] MEDS ORDERED: Sodium Chloride 0.9% 10 ML SDV IV PRN (16:25)
[2021-06-09] MEDS ORDERED: Carboprost Tromethamine 250 MCG/1 ML Amp IM PRN (16:25)
[2021-06-09] MEDS ORDERED: Sodium Chloride 0.9% 2.5 ML Syringe FLUSH PRN (16:25)
[2021-06-09] MEDS ORDERED: Methylergonovine 0.2 MG/1 ML Amp IM PRN (16:25)
[2021-06-09] MEDS ORDERED: Nalbuphine 10 MG/1 ML Vial IVPUSH PRN (16:25)
[2021-06-09] MEDS ORDERED: Butorphanol 1 MG/ML SDV IVPUSH PRN (16:25)
[2021-06-09] MEDS ORDERED: Ondansetron 4 MG/2 ML SDV IVPUSH PRN (16:25)
[2021-06-09] MEDS ORDERED: Misoprostol 200 MCG Tab PO PRN (16:25)
[2021-06-09] MEDS ORDERED: Oxytocin/0.9 % Sodium Chloride 30 UNIT/500 ML BAG IV SCH ×2 (16:30)
[2021-06-09] MEDS: Lactated Ringers 1,000 ML IV SCH ×4 (16:45→22:15)
[2021-06-09] MEDS ORDERED: Ropivacaine HCl/PF 200 ML ONE ×2 (19:51→19:53)
[2021-06-09] MEDS ORDERED: Ropivacaine 0.2% PF 2 MG/ML 20 ML SDV ONE (19:53)
--- NOTE | 2021-06-09 20:10 | PCM.PREANE ---
Preanesthetic Assessment - Anesthesia/Transfusion/Family Hx Anesthesia History: Prior Anesthesia Without Reaction Family History of Anesthesia Reaction: No Transfusion History: No Prior Transfusion(s) - Review of Systems General: No Symptoms Pulmonary: No Symptoms, Other (Smokes 1/2 PPD) Cardiovascular: No Symptoms, Other (HTN with prior ) Gastrointestinal: No Symptoms Neurological: No Symptoms, Other (Optic neuropathy 2 years ago. Resolved with steriods.) Other: Reports: None (Kidney Stone) - Physical Assessment NPO Status Date: 06/09/21 NPO Status Time: 16:00 Height: 1.63 m Weight: 68.311 kg ASA Class: 2 Mental Status: Alert & Oriented x3 Airway Class: Mallampati = 2 Dentition: Reports: Normal Dentition Thyro-Mental Finger Breadths: 3 Mouth Opening Finger Breadths: 3 ROM/Head Extension: Full Lungs: Clear to Auscultation, Normal Respiratory Effort Cardiovascular: Regular Rate, Regular Rhythm - Lab Values: Laboratory Last Values WBC 14.33 K/uL (4.0-11.0) H 06/09/21 16:15 RBC 3.95 M/uL (4.30-5.90) L 06/09/21 16:15 Hgb 11.4 g/dL (12.0-16.0) L 06/09/21 16:15 Hct 34.5 % (36.0-46.0) L 06/09/21 16:15 MCV 87.3 fL (80.0-98.0) 06/09/21 16:15 MCH 28.9 pg (27.0-32.0) 06/09/21 16:15 MCHC 33.0 g/dL (31.0-37.0) 06/09/21 16:15 RDW Std Deviation 45.4 fl (28.0-62.0) 06/09/21 16:15 RDW Coeff of Harman 14 % (11.0-15.0) 06/09/21 16:15 Plt Count 269 K/uL (150-400) 06/09/21 16:15 MPV 10.60 fL (7.40-12.00) 06/09/21 16:15 Nucleated RBC % 0.0 /100WBC 06/09/21 16:15 Nucleated RBCs # 0 K/uL 06/09/21 16:15 Urine Color YELLOW 06/09/21 16:34 Urine Appearance CLEAR 06/09/21 16:34 Urine pH 7.0 (5.0-8.0) 06/09/21 16:34 Ur Specific [place] 1.020 (1.001-1.035) 06/09/21 16:34 Urine Protein NEGATIVE mg/dL (NEGATIVE) 06/09/21 16:34 Urine Glucose (UA) NEGATIVE mg/dL (NEGATIVE) 06/09/21 16:34 Urine Ketones NEGATIVE mg/dL (NEGATIVE) 06/09/21 16:34 Urine Occult Blood NEGATIVE (NEGATIVE) 06/09/21 16:34 Urine Nitrite NEGATIVE (NEGATIVE) 06/09/21 16:34 Urine Bilirubin NEGATIVE (NEGATIVE) 06/09/21 16:34 Urine Urobilinogen 0.2 EU/dL (<2.0) 06/09/21 16:34 Ur Leukocyte Esterase NEGATIVE (NEGATIVE) 06/09/21 16:34 Blood Type O POSITIVE 06/09/21 16:15 Antibody Screen NEGATIVE 06/09/21 16:15 - Allergies Allergies/Adverse Reactions: Allergies Allergy/AdvReac Type Severity Reaction Status Date / Time kiwi Allergy Itching Verified 05/18/21 22:12 latex Allergy Hives Verified 05/18/21 22:12 - Blood Blood Available: Yes Product(s) Available: PRBC (Type and Screen) - Anesthesia Plan Pre-Op Medication Ordered: None - Acknowledgements Anesthesia Type Planned: Epidural Pt an Appropriate Candidate for the Planned Anesthesia: Yes Alternatives and Risks of Anesthesia Discussed w Pt/Guardian: Yes Pt/Guardian Understands and Agrees with Anesthesia Plan: Yes PreAnesthesia Questionnaire - Past Health History Medical/Surgical History: Denies Medical/Surgical History HEENT History: Reports: None Cardiovascular History: Reports: Hypertension Other Cardiovascular History: 2017 & 2018 - preeclampsia with both prior pregnancies Respiratory History: Reports: Pneumonia, Recurrent Other Respiratory History: Hx of pneumonia, pt unsure of date. Gastrointestinal History: Reports: None Other Gastrointestinal History: 2011 - Laparoscopy Genitourinary History: Reports: Pyelonephritis, Renal Calculus, UTI, Recurrent Other Genitourinary History: 2016 - Pyelonephritis LAB ASSISTANT History: Reports: Hyperemesis, , Spontaneous , Other (See Below) Other OB/BYN History: 2008 - hx chlamydia & HPV. 2017 & 2018 - preeclampsia with both prior pregnancies. 2018 -abnormal PAP Musculoskeletal History: Reports: None Neurological History: Reports: None Psychiatric History: Reports: Depression Endocrine/Metabolic History: Reports: None Hematologic History: Reports: None Immunologic History: Reports: None Oncologic (Cancer) History: Reports: None Dermatologic History: Reports: None - Infectious Disease History Infectious Disease History: Reports: Human Papilloma Virus (HPV) - Past Surgical History HEENT Surgical History: Reports: Myringotomy w Tube(s), Oral Surgery, Other (See Below) Other HEENT Surgeries/Procedures: 1991 - Tubes in both ears as a child. 2019 - [place] teeth extraction. 2019 - Optic neuritis Cardiovascular Surgical History: Reports: None GI Surgical History: Reports: Other (See Below) Other GI Surgeries/Procedures: 2011 - laparoscopy Female Surgical History: Reports: None - SUBSTANCE USE Tobacco Use Status *Q: Current Every Day Tobacco User Tobacco Use Within Last Twelve Months: Cigarettes Recreational Drug Use History: No - HOME MEDS Home Medications: Home Meds Doxylamine Succinate [Unisom] 1 tab PO DAILY PRN 03/27/18 [History] Metoprolol Succinate 25 mg PO DAILY 03/20/19 [History] Sertraline [Zoloft] 50 mg PO DAILY 03/20/19 [History] norgestimate-ethinyl estradioL [Sprintec 28 Day Tablet] 1 mg PO DAILY 03/20/19 [History] - CURRENT (IN HOUSE) MEDS Current Meds: Current Medications Butorphanol Tartrate (Butorphanol 1 Mg/Ml Sdv) 1 mg IVPUSH Q1H PRN PRN Reason: Pain (severe 7-10) Carboprost Tromethamine (Carboprost Tromethamine 250 Mcg/1 Ml Amp) 250 mcg IM ASDIRECTED PRN PRN Reason: Post Hemorrhage Oxytocin/Sodium Chloride (Oxytocin 30 Unit In Ns 0.9% 500 Ml Premix) 30 unit in 500 mls @ 2 mls/hr IV TITRATE JAY; Protocol Last Titration: 06/09/21 18:30 Dose: 10 munits/min, 10 mls/hr Documented by: Lactated Ringer's (Ringers, Lactated) 1,000 mls @ 150 mls/hr IV ASDIRECTED JAY Last Admin: 06/09/21 19:16 Dose: 999 mls/hr Documented by: Oxytocin/Sodium Chloride (Oxytocin 30 Unit In Ns 0.9% 500 Ml Premix) 30 unit in 500 mls @ 500 mls/hr IV TITRATE JAY Tranexamic Acid 1,000 mg/ (Sodium Chloride) 110 mls @ 660 mls/hr IV ONETIME PRN PRN Reason: Bleeding Lidocaine HCl (Lidocaine 1% 50 Ml Mdv) 50 ml INJECT ONETIME PRN PRN Reason: Laceration repair Methylergonovine Maleate (Methylergonovine 0.2 Mg/1 Ml Amp) 0.2 mg IM ASDIRECTED PRN PRN Reason: Post Hemorrhage Misoprostol (Misoprostol 25 Mcg (1/4 Of 100 Mcg) Tab) 25 mcg VAG Q4H PRN PRN Reason: Cervical Ripening Misoprostol (Misoprostol 200 Mcg Tab) 200 mcg PO ONETIME PRN PRN Reason: Post Hemorrhage Nalbuphine HCl (Nalbuphine 10 Mg/1 Ml Vial) 10 mg IVPUSH Q1H PRN PRN Reason: Pain (severe 7-10) Ondansetron HCl (Ondansetron 4 Mg/2 Ml Sdv) 4 mg IVPUSH Q6H PRN PRN Reason: Nausea/Vomiting Sodium Chloride (Sodium Chloride 0.9% 10 Ml Syringe) 10 ml FLUSH ASDIRECTED PRN PRN Reason: Keep Vein Open Sodium Chloride (Sodium Chloride 0.9% 2.5 Ml Syringe) 2.5 ml FLUSH ASDIRECTED PRN PRN Reason: Keep Vein Open Sodium Chloride (Sodium Chloride 0.9% 10 Ml Sdv) 10 ml IV ASDIRECTED PRN PRN Reason: IV Use Sterile Water (Water For Irrigation,Sterile 1,000 Ml Container) 1,000 ml IRR ASDIRECTED PRN PRN Reason: delivery Terbutaline Sulfate (Terbutaline 1 Mg/Ml Sdv) 0.25 mg SUBCUT ASDIRECTED PRN PRN Reason: Tacysystole Discontinued Medications Ropivacaine (Naropin 0.2%) Confirm Administered Dose 200 mls @ as directed .ROUTE .STK-MED ONE Stop: 06/09/21 19:52 Ropivacaine (Naropin 0.2%) Confirm Administered Dose 200 mls @ as directed .ROUTE .STK-MED ONE Stop: 06/09/21 19:54 Ropivacaine (Ropivacaine 0.2% Pf 2 Mg/Ml 20 Ml Sdv) Confirm Administered Dose 20 ml .ROUTE .[facility]-MED ONE Stop: 06/09/21 19:54
--- NOTE | 2021-06-09 20:18 | PCM.SN.2 ---
Time Documentation - Pre-Procedure Checklist Attending Provider Aware: Yes Chart Reviewed: Yes Consent Signed: Yes Labs Reviewed: Yes VS/FHR Reviewed: Yes Patient Identification Confirmation Method: Reports: Chart Visual, Verbal Patient Pt an Appropriate Candidate for the Planned Anesthesia: Yes Alternatives and Risks of Anesthesia Discussed w Pt/Guardian: Yes - Procedure Procedure Start Date: 06/09/21 Procedure Start Time: 19:[address]: Reports: Blood Pressure, Heart Rate, SPO2 Functional IV: Yes Safety Measures: Reports: Patient Identified, Procedure Verified, Site Verified, Procedure Time Out Patient Position: Reports: Sitting Prep: Reports: Betadine x3 Local Anesthetic: Reports: Intradermal Wheal w Lidocaine 1% (3ML) Regional Placement Level: Reports: L3-4 Needle: Reports: 17 g Touhy Approach: Reports: Midline Technique: Reports: ROBB Glass Syringe ROBB Needle Depth (cm): 6 cm Parasthesia: Reports: Other ("shock" like sensation down right leg with initial cath insertion which resolved within 5 seconds.) Fluid Obtained: Reports: None Catheter Depth at Skin (cm): 15 cm Test Dose Time: 19:47 Test Dose Medication: Reports: Lidocaine 1.5% w Epinephrine 1:200,000 (5ML) Test Dose Response: Reports: Negative Loading Dose Time: 19:55 Loading Dose Medication: Ropiviciane 0.2% Loading Dose Patient Position: Supine Continuous Infusion Start Time: 20:00 Continuous Infusion Medication: Ropiviciane 0.2% Continuous Infusion Rate: 10 Continuous Infusion PCS Bolus Option: 6 Continuous Infusion Lockout Dose (cc/hr): 20 Patient Position Post Placement: Reports: Supline/LESLY Post-procedure Pain Level: 4 Level Achieved: T4 VS and FHR Monitored in Unit Post Placement: Yes Procedure End Date: 06/09/21 Procedure End Time: 20:00 Procedure Comment: Sterile technique used throughout
--- NOTE | 2021-06-09 20:21 | PCM.POSTAN ---
POST ANESTHESIA ASSESSMENT - MENTAL STATUS Mental Status: Alert - RESPIRATORY Respiratory Status: Respiratory Rate WNL, Airway Patent, O2 Saturation Stable - CARDIOVASCULAR CV Status: Pulse Rate WNL, Blood Pressure Stable - GASTROINTESTINAL GI Status: No Symptoms - PAIN Pain Score: 4 - POST OP HYDRATION Hydration Status: Adequate & Stable
[2021-06-09] MEDS ORDERED: ePHEDrine 50 MG/ML SDV IVPUSH PRN (20:22)
[2021-06-09] MEDS ORDERED: Ondansetron 4 MG/2 ML SDV ONE (20:30)
[2021-06-09] MEDS ORDERED: Ropivacaine/PF 400 MG/200 ML PCA EPIDUR SCH (20:30)
--- NOTE | 2021-06-10 00:13 | PCM.SN.2 ---
- Free Text/Narrative Note: Called to room for complaints of pain. pt given additional 6 ml bolus and pump infusion rate increased to 16ml/hr and bolus dose decreased to 4 ml. Time Documentation
[2021-06-10] MEDS ORDERED: Bisacodyl 10 MG Supp RECTAL PRN (06:25)
[2021-06-10] MEDS ORDERED: Docusate Sodium 100 MG Cap PO PRN (06:25)
[2021-06-10] MEDS ORDERED: Witch Hazel Medicated Pads 40/Jar TOP PRN (06:25)
[2021-06-10] MEDS ORDERED: Ibuprofen 400 MG Tab PO PRN (06:25)
[2021-06-10] MEDS ORDERED: Lanolin 100% Cream 7 GM Tube TOP PRN (06:25)
[2021-06-10] MEDS ORDERED: Acetaminophen 500 MG Tab PO PRN (06:25)
[2021-06-10] MEDS ORDERED: Benzocaine/Menthol 20%-0.5% Spray 78 GM Cannister TOP PRN (06:25)
--- NOTE | 2021-06-10 06:31 | PCM.DEL ---
L & D Note - General Info Date of Service: 06/10/21 - Delivery Note Labor: Induced by Oxytocin Delivery Outcome: Livebirth Infant Delivery Method: Spontaneous Vaginal Delivery-Single Presentation: Right Occiput Anterior (MEETA) Nuchal Cord: None Anesthesia Type: Epidural Amniotic Fluid Description: Clear Episiotomy Type: None Laceration: None Placenta: Intact Cord: 3 Vessels Estimated Blood Loss: 300 Resuscitation Needed: No Score 1 min: 8 Score 5 min: 9 Second Stage Interventions: Reports: Pushing Effectively Delivery Comments (Free Text/Narrative):: Live female delivered at 557am , 8/9 weight 3510g , 3VC - General Info Date of Service: 06/10/21 - Patient Data Weight - Most Recent: 68.311 kg Lab Results Last 24 Hours: Laboratory Results - last 24 hr 06/09/21 06/09/21 06/09/21 Range/Units 16:15 16:15 16:34 WBC 14.33 H (4.0-11.0) K/uL RBC 3.95 L (4.30-5.90) M/uL Hgb 11.4 L (12.0-16.0) g/dL Hct 34.5 L (36.0-46.0) % MCV 87.3 (80.0-98.0) fL MCH 28.9 (27.0-32.0) pg MCHC 33.0 (31.0-37.0) g/dL RDW Std Deviation 45.4 (28.0-62.0) fl RDW Coeff of Harman 14 (11.0-15.0) % Plt Count 269 (150-400) K/uL MPV 10.60 (7.40-12.00) fL Nucleated RBC % 0.0 /100WBC Nucleated RBCs # 0 K/uL Urine Color YELLOW Urine Appearance CLEAR Urine pH 7.0 (5.0-8.0) Ur Specific [address] 1.020 (1.001-1.035) Urine Protein NEGATIVE (NEGATIVE) mg/dL Urine Glucose (UA) NEGATIVE (NEGATIVE) mg/dL Urine Ketones NEGATIVE (NEGATIVE) mg/dL Urine Occult Blood NEGATIVE (NEGATIVE) Urine Nitrite NEGATIVE (NEGATIVE) Urine Bilirubin NEGATIVE (NEGATIVE) Urine Urobilinogen 0.2 (<2.0) EU/dL Ur Leukocyte Esterase NEGATIVE (NEGATIVE) Blood Type O POSITIVE Antibody Screen NEGATIVE Med Orders - Current: Current Medications Butorphanol Tartrate (Butorphanol 1 Mg/Ml Sdv) 1 mg IVPUSH Q1H PRN PRN Reason: Pain (severe 7-10) Carboprost Tromethamine (Carboprost Tromethamine 250 Mcg/1 Ml Amp) 250 mcg IM ASDIRECTED PRN PRN Reason: Post Hemorrhage Ephedrine Sulfate (Ephedrine 50 Mg/Ml Sdv) 10 mg IVPUSH Q1M PRN PRN Reason: Hypotension Oxytocin/Sodium Chloride (Oxytocin 30 Unit In Ns 0.9% 500 Ml Premix) 30 unit in 500 mls @ 2 mls/hr IV TITRATE JAY; Protocol Last Titration: 06/09/21 18:30 Dose: 10 munits/min, 10 mls/hr Documented by: Lactated Ringer's (Ringers, Lactated) 1,000 mls @ 150 mls/hr IV ASDIRECTED JAY Last Admin: 06/09/21 20:44 Dose: 999 mls/hr Documented by: Oxytocin/Sodium Chloride (Oxytocin 30 Unit In Ns 0.9% 500 Ml Premix) 30 unit in 500 mls @ 500 mls/hr IV TITRATE JAY Tranexamic Acid 1,000 mg/ (Sodium Chloride) 110 mls @ 660 mls/hr IV ONETIME PRN PRN Reason: Bleeding Lidocaine HCl (Lidocaine 1% 50 Ml Mdv) 50 ml INJECT ONETIME PRN PRN Reason: Laceration repair Methylergonovine Maleate (Methylergonovine 0.2 Mg/1 Ml Amp) 0.2 mg IM ASDIRECTED PRN PRN Reason: Post Hemorrhage Miscellaneous Medication (Phenylephrine Hcl In 0.9% Nacl 1 Mg/10 Ml Syringe) 0.1 mg IVPUSH Q1M PRN PRN Reason: Hypotension Misoprostol (Misoprostol 25 Mcg (1/4 Of 100 Mcg) Tab) 25 mcg VAG Q4H PRN PRN Reason: Cervical Ripening Misoprostol (Misoprostol 200 Mcg Tab) 200 mcg PO ONETIME PRN PRN Reason: Post Hemorrhage Nalbuphine HCl (Nalbuphine 10 Mg/1 Ml Vial) 10 mg IVPUSH Q1H PRN PRN Reason: Pain (severe 7-10) Ondansetron HCl (Ondansetron 4 Mg/2 Ml Sdv) 4 mg IVPUSH Q6H PRN PRN Reason: Nausea/Vomiting Last Admin: 06/09/21 20:43 Dose: 4 mg Documented by: Ropivacaine (Ropivacaine/Pf 400 Mg/200 Ml Radio Tower Technician) 400 mg EPIDUR ASDIRECTED JAY Sodium Chloride (Sodium Chloride 0.9% 10 Ml Syringe) 10 ml FLUSH ASDIRECTED PRN PRN Reason: Keep Vein Open Sodium Chloride (Sodium Chloride 0.9% 2.5 Ml Syringe) 2.5 ml FLUSH ASDIRECTED PRN PRN Reason: Keep Vein Open Sodium Chloride (Sodium Chloride 0.9% 10 Ml Sdv) 10 ml IV ASDIRECTED PRN PRN Reason: IV Use Sterile Water (Water For Irrigation,Sterile 1,000 Ml Container) 1,000 ml IRR ASDIRECTED PRN PRN Reason: delivery Terbutaline Sulfate (Terbutaline 1 Mg/Ml Sdv) 0.25 mg SUBCUT ASDIRECTED PRN PRN Reason: Tacysystole Discontinued Medications Ropivacaine (Naropin 0.2%) Confirm Administered Dose 200 mls @ as directed .ROUTE .[employer]MED ONE Stop: 06/09/21 19:52 Ropivacaine (Naropin 0.2%) Confirm Administered Dose 200 mls @ as directed .ROUTE .[facility] Stop: 06/09/21 19:54 Miscellaneous Medication (Phenylephrine Hcl In 0.9% Nacl 1 Mg/10 Ml Syringe) Confirm Administered Dose 1 mg .ROUTE .[email or web address]-MED ONE Stop: 06/09/21 20:31 Ondansetron HCl (Ondansetron 4 Mg/2 Ml Sdv) Confirm Administered Dose 4 mg .ROUTE .[employer]MED ONE Stop: 06/09/21 20:31 Ropivacaine (Ropivacaine 0.2% Pf 2 Mg/Ml 20 Ml Sdv) Confirm Administered Dose 20 ml .ROUTE .[email or web address]-MED ONE Stop: 06/09/21 19:54 - Problem List & Annotations (1) Vaginal delivery SNOMED Code(s): 020346256 Code(s): O80 - ENCOUNTER FOR FULL-TERM UNCOMPLICATED DELIVERY Status: Acute Current Visit: No - Problem List Review Problem List Initiated/Reviewed/Updated: Yes - My Orders Last 24 Hours: My Active Orders 06/10/21 06:25 Patient Status [ADT] Routine May Shower [RC] ASDIRECTED Up ad Vivien [RC] ASDIRECTED Vital Signs [RC] PER UNIT ROUTINE BLOOD GAS VENOUS UMBILICAL [BG] Stat Acetaminophen [Tylenol Extra Strength] 1,000 mg PO Q4H PRN Acetaminophen [Tylenol Extra Strength] 500 mg PO Q4H PRN Benzocaine/Menthol [Dermoplast Pain Relief 20%-0.5% [place]] 78 gm TOP ASDIRECTED PRN Docusate Sodium [Colace] 100 mg PO Q12H PRN Ibuprofen [Motrin] 400 mg PO Q4H PRN Ibuprofen [Motrin] 800 mg PO Q6H PRN Lanolin [Lansinoh HPA] See Dose Instructions TOP ASDIRECTED PRN bisacodyL [Dulcolax] 10 mg RECTAL ONETIME PRN oxyCODONE 5 mg PO Q2H PRN witch Saloni [Tucks] 1 pad TOP ASDIRECTED PRN Assess Lochia [WOMSER] Per Unit Routine Assess Uterine Involution [WOMSER] Per Unit Routine Peripheral IV Discontinue [OM.PC] Routine Resuscitation Status Routine 06/11/21 05:11 HEMOGLOBIN/HEMATOCRIT,HH [HEME] Timed - Assessment Assessment:: 30yo [id number] s/p PPD0 IOL for renal colic GBS negative , Rubella immune , O positive - Plan Plan:: Routine
[2021-06-10] MEDS: Ibuprofen 800 MG Tab PO PRN ×3 (06:59→21:27)
--- NOTE | 2021-06-10 07:06 | PCM48HPAN ---
Post Anesthesia Note - EVALUATION WITHIN 48HRS OF ANESTHETIC Vital Signs in Normal Range: Yes Patient Participated in Evaluation: Yes Respiratory Function Stable: Yes Airway Patent: Yes Cardiovascular Function Stable: Yes Hydration Status Stable: Yes Pain Control Satisfactory: Yes Nausea and Vomiting Control Satisfactory: Yes Mental Status Recovered: Yes
[2021-06-10] MEDS: oxyCODONE 5 MG Tab PO PRN ×3 (08:54→19:57)
[2021-06-10] MEDS: Acetaminophen 500 MG Tab PO PRN ×3 (08:54→19:57)
--- NOTE | 2021-06-10 09:57 | PCM48HPAN ---
Post Anesthesia Note - EVALUATION WITHIN 48HRS OF ANESTHETIC Vital Signs in Normal Range: Yes Patient Participated in Evaluation: Yes Respiratory Function Stable: Yes Airway Patent: Yes Cardiovascular Function Stable: Yes Hydration Status Stable: Yes Pain Control Satisfactory: Yes Nausea and Vomiting Control Satisfactory: Yes Mental Status Recovered: Yes - COMMENTS/OBSERVATIONS Free Text/Narrative:: Pt states be ambulating in room with no weakness or paresthesias. Pt denies pain at epidural site.
--- NOTE | 2021-06-10 13:56 | OR ---
SURGEON: PEREZ DICKINSON DATE OF PROCEDURE: 06/10/2021 PREOPERATIVE DIAGNOSES: A 30-year-old G6, P2-0-2-3 at 39 weeks and 2 days, admitted for induction of labor secondary to renal colic. POSTOPERATIVE DIAGNOSES: A 30-year-old G6, P2-0-2-3 at 39 weeks and 2 days, admitted for induction of labor secondary to renal colic. PROCEDURE: Normal spontaneous vaginal delivery. ESTIMATED BLOOD LOSS: 300. INTRAVENOUS FLUIDS: Pitocin running. ANESTHESIA: Epidural. NOTES AND FINDINGS: Live female delivered at 5:57. scores 8 and 9. Weight is 3510 g. BRIEF HISTORY ABOUT THE PATIENT: She is a 30-year-old G6, P2-0-3-2 at 39 weeks who was admitted for induction of labor because of severe back pain. She had profound pain from the renal colic. She had no other complications in the . She was GBS negative. She was 3 cm when she came in. She had Pitocin, and AROM was done. She went to progress. She became fully dilated. When fully dilated, she was encouraged to push. PROCEDURE IN DETAIL: With good pushing effort, she delivered the head, subsequently by the anterior and posterior shoulder. The body was delivered. was placed on the maternal abdomen. Delayed cord clamping was observed. Cord blood gases were obtained. Placenta was delivered via controlled cord traction. Perineum was inspected and noted to be intact. Pitocin was running. The uterus was noted to be firm. All instrument and pad counts were correct x2. The patient was left in Labor and Delivery in stable condition. DEVONTE SHEPHERD /[id number] MTDD
[2021-06-11] MEDS: Acetaminophen 500 MG Tab PO PRN ×2 (04:29→08:55)
[2021-06-11] MEDS: oxyCODONE 5 MG Tab PO PRN ×2 (04:29→08:53)
[2021-06-11] MEDS: Ibuprofen 800 MG Tab PO PRN (07:55)
[2021-06-11] MEDS ORDERED: Citalopram 20 MG Tab PO ONE (08:14)
--- NOTE | 2021-06-11 08:17 | PCM.PNPP ---
- General Info Date of Service: 06/11/21 Functional Status: Reports: Pain Controlled, Tolerating Diet, Ambulating, Urinating - Review of Systems General: Reports: Fatigue. Denies: Fever, Weakness Pulmonary: Denies: Shortness of Breath Cardiovascular: Reports: Lightheadedness (mild this am, tired and has not eaten). Denies: Chest Pain, Palpitations Gastrointestinal: Reports: Abdominal Pain (cramping controlled with oral pain meds). Denies: Nausea, Vomiting Genitourinary: Denies: Dysuria, Flank Pain Musculoskeletal: Reports: No Symptoms Skin: Reports: No Symptoms Neurological: Reports: No Symptoms Psychiatric: Reports: No Symptoms - General Info Date of Service: 06/11/21 - Patient Data Vital Signs - Most Recent: Last Vital Signs Temp 35.8 C L 06/11/21 07:54 Pulse 86 06/11/21 07:54 Resp 15 06/11/21 07:54 BP 118/83 06/11/21 07:54 Pulse Ox 97 06/11/21 07:54 Weight - Most Recent: 68.311 kg Lab Results - Last 24 Hours: Laboratory Results - last 24 hr 06/11/21 Range/Units 07:05 Hgb 8.5 L (12.0-16.0) g/dL Hct 26.6 L (36.0-46.0) % Med Orders - Current: Current Medications Acetaminophen (Acetaminophen 500 Mg Tab) 500 mg PO Q4H PRN PRN Reason: Pain (mild 1-3) Last Admin: 06/11/21 04:29 Dose: 500 mg Documented by: Acetaminophen (Acetaminophen 500 Mg Tab) 1,000 mg PO Q4H PRN PRN Reason: Pain (mild 1-3) Benzocaine/Menthol (Benzocaine/Menthol 20%-0.5% [place] 78 Gm Cannister) 78 gm TOP ASDIRECTED PRN PRN Reason: Perineal Comfort Measure Last Admin: 06/10/21 08:57 Dose: 1 can Documented by: Bisacodyl (Bisacodyl 10 Mg Supp) 10 mg RECTAL ONETIME PRN PRN Reason: Constipation Butorphanol Tartrate (Butorphanol 1 Mg/Ml Sdv) 1 mg IVPUSH Q1H PRN PRN Reason: Pain (severe 7-10) Carboprost Tromethamine (Carboprost Tromethamine 250 Mcg/1 Ml Amp) 250 mcg IM ASDIRECTED PRN PRN Reason: Post Hemorrhage Citalopram Hydrobromide (Citalopram 20 Mg Tab) 20 mg PO ONETIME ONE Stop: 06/11/21 08:15 Docusate Sodium (Docusate Sodium 100 Mg Cap) 100 mg PO Q12H PRN PRN Reason: Constipation Last Admin: 06/10/21 21:26 Dose: 100 mg Documented by: Emollient Ointment (Lanolin 100% Cream 7 Gm Tube) 0 gm TOP ASDIRECTED PRN PRN Reason: Sore Nipples Ephedrine Sulfate (Ephedrine 50 Mg/Ml Sdv) 10 mg IVPUSH Q1M PRN PRN Reason: Hypotension Oxytocin/Sodium Chloride (Oxytocin 30 Unit In Ns 0.9% 500 Ml Premix) 30 unit in 500 mls @ 2 mls/hr IV TITRATE JAY; Protocol Last Titration: 06/09/21 18:30 Dose: 10 munits/min, 10 mls/hr Documented by: Lactated Ringer's (Ringers, Lactated) 1,000 mls @ 150 mls/hr IV ASDIRECTED JAY Last Admin: 06/09/21 22:15 Dose: 150 mls/hr Documented by: Oxytocin/Sodium Chloride (Oxytocin 30 Unit In Ns 0.9% 500 Ml Premix) 30 unit in 500 mls @ 500 mls/hr IV TITRATE JAY Tranexamic Acid 1,000 mg/ (Sodium Chloride) 110 mls @ 660 mls/hr IV ONETIME PRN PRN Reason: Bleeding Ibuprofen (Ibuprofen 400 Mg Tab) 400 mg PO Q4H PRN PRN Reason: Pain (mild 1-3) Ibuprofen (Ibuprofen 800 Mg Tab) 800 mg PO Q6H PRN PRN Reason: Cramping Last Admin: 06/11/21 07:55 Dose: 800 mg Documented by: Lidocaine HCl (Lidocaine 1% 50 Ml Mdv) 50 ml INJECT ONETIME PRN PRN Reason: Laceration repair Methylergonovine Maleate (Methylergonovine 0.2 Mg/1 Ml Amp) 0.2 mg IM ASDIRECTED PRN PRN Reason: Post Hemorrhage Miscellaneous Medication (Phenylephrine Hcl In 0.9% Nacl 1 Mg/10 Ml Syringe) 0.1 mg IVPUSH Q1M PRN PRN Reason: Hypotension Misoprostol (Misoprostol 25 Mcg (1/4 Of 100 Mcg) Tab) 25 mcg VAG Q4H PRN PRN Reason: Cervical Ripening Misoprostol (Misoprostol 200 Mcg Tab) 200 mcg PO ONETIME PRN PRN Reason: Post Hemorrhage Nalbuphine HCl (Nalbuphine 10 Mg/1 Ml Vial) 10 mg IVPUSH Q1H PRN PRN Reason: Pain (severe 7-10) Ondansetron HCl (Ondansetron 4 Mg/2 Ml Sdv) 4 mg IVPUSH Q6H PRN PRN Reason: Nausea/Vomiting Last Admin: 06/09/21 20:43 Dose: 4 mg Documented by: Oxycodone HCl (Oxycodone 5 Mg Tab) 5 mg PO Q2H PRN PRN Reason: Pain (severe 7-10) Last Admin: 06/11/21 04:29 Dose: 5 mg Documented by: Ropivacaine (Ropivacaine/Pf 400 Mg/200 Ml Cement Handler) 400 mg EPIDUR ASDIRECTED JAY Sodium Chloride (Sodium Chloride 0.9% 10 Ml Syringe) 10 ml FLUSH ASDIRECTED PRN PRN Reason: Keep Vein Open Sodium Chloride (Sodium Chloride 0.9% 2.5 Ml Syringe) 2.5 ml FLUSH ASDIRECTED PRN PRN Reason: Keep Vein Open Sodium Chloride (Sodium Chloride 0.9% 10 Ml Sdv) 10 ml IV ASDIRECTED PRN PRN Reason: IV Use Sterile Water (Water For Irrigation,Sterile 1,000 Ml Container) 1,000 ml IRR ASDIRECTED PRN PRN Reason: delivery Terbutaline Sulfate (Terbutaline 1 Mg/Ml Sdv) 0.25 mg SUBCUT ASDIRECTED PRN PRN Reason: Tacysystole Witch Renetta (Witch Renetta Medicated Pads 40/Jar) 1 pad TOP ASDIRECTED PRN PRN Reason: comfort care Last Admin: 06/10/21 08:57 Dose: 1 tub Documented by: Discontinued Medications Ropivacaine (Naropin 0.2%) Confirm Administered Dose 200 mls @ as directed .ROUTE .STK-MED ONE Stop: 06/09/21 19:52 Last Admin: 06/10/21 09:54 Dose: Not Given Documented by: Ropivacaine (Naropin 0.2%) Confirm Administered Dose 200 mls @ as directed .ROUTE .STK-MED ONE Stop: 06/09/21 19:54 Last Admin: 06/10/21 09:54 Dose: Not Given Documented by: Miscellaneous Medication (Phenylephrine Hcl In 0.9% Nacl 1 Mg/10 Ml Syringe) Confirm Administered Dose 1 mg .ROUTE .STK-MED ONE Stop: 06/09/21 20:31 Ondansetron HCl (Ondansetron 4 Mg/2 Ml Sdv) Confirm Administered Dose 4 mg .ROUTE .STK-MED ONE Stop: 06/09/21 20:31 Ropivacaine (Ropivacaine 0.2% Pf 2 Mg/Ml 20 Ml Sdv) Confirm Administered Dose 20 ml .ROUTE .STK-MED ONE Stop: 06/09/21 19:54 Last Admin: 06/10/21 09:54 Dose: Not Given Documented by: - Infant Interaction Support Person: - Recovery Exam Fundal Tone: Firm Fundal Level: 1 Fingerbreadths Below Umbilicus Fundal Placement: Midline Lochia Amount: Scant Lochia Color: Rubra/Red Perineum Description: Intact, Minimal Bruising/Swelling Bladder Status: Voiding Urinary Elimination: Voided - Exam General: Alert, Oriented Lungs: Normal Respiratory Effort Cardiovascular: Regular Rate, Regular Rhythm GI/Abdominal Exam: Soft, Non-Tender Extremities: Pedal Edema (trace). No: Maikel's Sign Skin: Warm, Dry, Intact Neurological: No New Focal Deficit Psy/Mental Status: Alert, Normal Affect, Normal Mood - Problem List & Annotations (1) Vaginal delivery SNOMED Code(s): 770162404 Code(s): O80 - ENCOUNTER FOR FULL-TERM UNCOMPLICATED DELIVERY Status: Acute Current Visit: No - Problem List Review Problem List Initiated/Reviewed/Updated: Yes - My Orders Last 24 Hours: My Active Orders 06/10/21 Lunch Regular Diet [DIET] 06/11/21 08:13 Ready for Discharge [RC] PER UNIT ROUTINE 06/11/21 08:14 Citalopram [Celexa] 20 mg PO ONETIME ONE - Assessment Assessment:: 30yo [id number] s/p PPD 1 - Plan Plan:: Doing well overall, renal colic all ready much improved to resolved. VS are stable. Patient feels ready to go home. Bottlefeeding. Plan citalopram for PP depression prophylaxis. Continue PNV and iron and will reevaluate hemoglobin at PP visit. Discharge instructions reviewed. Follow up at [facility] 4 weeks.
== END 2021-06-11 10:55 | disposition home or self-care (01) | DRG 560 ==
LOC: MW.OBCHECK 16:02 → MW.OB 16:03 → OBSVTOIN 06-10 06:25 → MW.OB 06-10 09:10
PROVIDERS: ADMIT Obstetrics & Gynecology; ATTEND Obstetrics & Gynecology
PROC: 10E0XZZ Delivery of Products of Conception, External Approach (ICD-10-PCS; principal; 2021-06-10)
PROC: 10907ZC Drainage of Amniotic Fluid, Therapeutic from Products of Conception, Via Natural or Artificial Opening (ICD-10-PCS; 2021-06-10)
PROC: 4A1HXCZ Monitoring of Products of Conception, Cardiac Rate, External Approach (ICD-10-PCS; 2021-06-10)
PROC: 3E0R3BZ Introduction of Anesthetic Agent into Spinal Canal, Percutaneous Approach (ICD-10-PCS; 2021-06-10)
DX: O80 Encounter for full-term uncomplicated delivery (principal); Z3A.39 39 weeks gestation of pregnancy; Z37.0 Single live birth
CPT/HCPCS: 36415; 59025; 59409; 81003; 82803; 85014; 85018; 85027; 86592; 86850; 86900; 86901; A9270-GY; J2370; J2405; J2590; J2795; J7120

== ENCOUNTER 2021-10-23 17:20 | Emergency (ER) | payer BC ==
[2021-10-23] MEDS ORDERED: Ondansetron 4 MG/2 ML SDV IVPUSH ONE (18:05)
[2021-10-23] MEDS ORDERED: Sodium Chloride 0.9% 1,000 ML IV ONE (18:05)
[2021-10-23 18:43] LABS: BLOOD UREA NITROGEN,BUN 15 mg/dL (7.0-18.0); CARBON DIOXIDE,CO2 17.1 mmol/L (21.0-32.0); CHLORIDE,CL 103 mmol/L (98-107); GLUCOSE RANDOM 144 mg/dL (74-106); LIPASE 34 U/L (73-393); POTASSIUM,K 3.7 mmol/L (3.5-5.1); SODIUM,NA 142 mmol/L (136-145)
[2021-10-23] MEDS ORDERED: diphenhydrAMINE 50 MG/ML SDV IVPUSH ONE (19:02)
[2021-10-23] MEDS ORDERED: Metoclopramide 10 MG/2 ML SDV IV ONE (19:02)
[2021-10-23] MEDS ORDERED: Acetaminophen 500 MG Tab PO ONE (20:07)
[2021-10-23] MEDS ORDERED: Ketorolac 30 MG/ML SDV IVPUSH ONE (20:07)
[2021-10-23 20:56] LABS: CORONAVIRUS COVID-19 NAA NEGATIVE (NEGATIVE); INFLUENZA A NAA NEGATIVE (NEGATIVE); INFLUENZA B NAA NEGATIVE (NEGATIVE)
== END 2021-10-23 21:53 | disposition home or self-care (01) ==
LOC: MW.ED 17:20
DX: E86.0 Dehydration (principal); I10 Essential (primary) hypertension; Z20.822 Contact with and (suspected) exposure to COVID-19; Z91.040 Latex allergy status; Z88.8 Allergy status to other drugs, medicaments and biological substances; Z79.899 Other long term (current) drug therapy
CPT/HCPCS: 0240U; 36415; 80053; 81001; 83690; 84703; 85025; 96374; 96375; 99284; A9270; J1200; J1885; J2405; J2765; J7030

== ENCOUNTER 2023-01-15 13:43 | Emergency (ER) | payer BC ==
[2023-01-15 14:26] LABS: APPEARANCE,URINE SLT CLOUDY; BILIRUBIN,URINE NEGATIVE (NEGATIVE); COLOR,URINE YELLOW; GLUCOSE,URINE NEGATIVE (NEGATIVE); KETONES,URINE NEGATIVE (NEGATIVE); LEUKOCYTE ESTERASE,URINE LARGE (NEGATIVE); NITRITE,URINE NEGATIVE (NEGATIVE); OCCULT BLOOD,URINE MODERATE (NEGATIVE); PROTEIN,URINE NEGATIVE (NEGATIVE); UROBILINOGEN,URINE 0.2 EU/dL (<2.0)
[2023-01-15 14:40] LABS: BACTERIA,URINE 1+ (NEGATIVE); EPITHELIAL CELLS,URINE FEW (NONE-FEW); WBC,URINE 20-30 (0-5/HPF)
[2023-01-15] MEDS ORDERED: Sodium Chloride 0.9% 10 ML Syringe FLUSH PRN (14:59)
[2023-01-15] MEDS ORDERED: Sodium Chloride 0.9% 2.5 ML Syringe FLUSH PRN (14:59)
[2023-01-15] MEDS ORDERED: Acetaminophen 500 MG Tab PO STA (15:00)
[2023-01-15] MEDS ORDERED: cefTRIAXone 1 GM in Sodium Chloride 0.9% 50 ML IV STA (15:03)
[2023-01-15 15:34] LABS: BASOPHILS PERCENT AUTO 0.2 % (0.0-1.5); EOSINOPHILS ABSOLUTE AUTO 0.2 K/uL (0.0-0.7); EOSINOPHILS PERCENT AUTO 1.6 % (0.0-7.0); HEMATOCRIT 38.7 % (36.0-46.0); HEMOGLOBIN 13.2 g/dL (12.0-16.0); LYMPHOCYTES ABSOLUTE AUTO 1.8 K/uL (0.6-2.4); LYMPHOCYTES PERCENT AUTO 19.4 % (16.0-40.0); MEAN CORPUSCULAR HEMOGLOBIN 31.1 pg (27.0-32.0); MEAN CORPUSCULAR HGB CONC 34.1 g/dL (31.0-37.0); MEAN CORPUSCULAR VOLUME 91.3 fL (80.0-98.0); MONOCYTES ABSOLUTE AUTO 0.6 K/uL (0.0-0.8); NEUTROPHILS ABSOLUTE AUTO 6.6 K/uL (1.4-5.7); NEUTROPHILS PERCENT AUTO 71.8 % (48.0-80.0); NRBC ABSOLUTE 0 K/uL; PLATELET COUNT,PLT 218 K/uL (150-400); RED BLOOD CELL COUNT 4.24 M/uL (4.30-5.90); WHITE BLOOD CELL COUNT,WBC 9.13 K/uL (4.0-11.0)
[2023-01-15] MEDS ORDERED: Phenazopyridine 200 MG Tab PO STA (15:39)
[2023-01-15 15:55] LABS: A/G RATIO 1.3 (0.9-1.6); ALBUMIN 3.8 g/dL (3.4-5.0); BILIRUBIN TOTAL 0.3 mg/dL (0.2-1.0); CALCIUM 9.7 mg/dL (8.5-10.1); CARBON DIOXIDE,CO2 27.4 mmol/L (21.0-32.0); CREATININE 0.9 mg/dL (0.6-1.0); EST CRCL DRUG DOSING (CG) 75.68 mL/min; POTASSIUM,K 3.9 mmol/L (3.5-5.1); PROTEIN TOTAL,TP 6.7 g/dL (6.4-8.2)
== END 2023-01-15 16:52 | disposition home or self-care (01) ==
LOC: MW.ED 13:43
DX: R33.9 Retention of urine, unspecified (principal); N30.01 Acute cystitis with hematuria; I10 Essential (primary) hypertension; F12.10 Cannabis abuse, uncomplicated; Z91.018 Allergy to other foods; Z91.040 Latex allergy status
CPT/HCPCS: 36415; 74176; 80053; 81001; 81025; 85025; 87086; 96360; 99284; A9270; J0696; J3490

== ENCOUNTER 2023-01-16 06:57 | Emergency (ER) | payer BC ==
[2023-01-16] MEDS ORDERED: Acetaminophen/HYDROcodone 325-5 MG Tab PO ONE (07:44)
== END 2023-01-16 09:28 | disposition home or self-care (01) ==
LOC: MW.ED 06:57
DX: N30.01 Acute cystitis with hematuria (principal); I10 Essential (primary) hypertension; Z79.899 Other long term (current) drug therapy; Z91.018 Allergy to other foods; Z91.040 Latex allergy status
CPT/HCPCS: 51702; 99283; A9270

== ENCOUNTER 2023-01-16 16:44 | Emergency (ER) | payer BC ==
[2023-01-16] MEDS ORDERED: Ondansetron 4 MG/2 ML SDV IVPUSH ONE (17:27)
[2023-01-16] MEDS ORDERED: Sodium Chloride 0.9% 1,000 ML IV ONE (17:27)
[2023-01-16] MEDS ORDERED: Metoclopramide 10 MG/2 ML SDV IVPUSH ONE (17:36)
[2023-01-16] MEDS ORDERED: fentaNYL 50 MCG/ML SDV IVPUSH ONE (17:37)
[2023-01-16 17:50] LABS: BASOPHILS PERCENT AUTO 0.1 % (0.0-1.5); EOSINOPHILS ABSOLUTE AUTO 0.1 K/uL (0.0-0.7); EOSINOPHILS PERCENT AUTO 0.6 % (0.0-7.0); HEMATOCRIT 40.1 % (36.0-46.0); HEMOGLOBIN 13.9 g/dL (12.0-16.0); LYMPHOCYTES ABSOLUTE AUTO 1.3 K/uL (0.6-2.4); MEAN CORPUSCULAR HEMOGLOBIN 31.2 pg (27.0-32.0); MEAN CORPUSCULAR HGB CONC 34.7 g/dL (31.0-37.0); MEAN CORPUSCULAR VOLUME 90.1 fL (80.0-98.0); MONOCYTES ABSOLUTE AUTO 0.9 K/uL (0.0-0.8); MONOCYTES PERCENT AUTO 7.2 % (0.0-15.0); NEUTROPHILS ABSOLUTE AUTO 9.9 K/uL (1.4-5.7); NEUTROPHILS PERCENT AUTO 81.1 % (48.0-80.0); NRBC ABSOLUTE 0 K/uL; PLATELET COUNT,PLT 240 K/uL (150-400); RED BLOOD CELL COUNT 4.45 M/uL (4.30-5.90); WHITE BLOOD CELL COUNT,WBC 12.15 K/uL (4.0-11.0)
[2023-01-16 18:10] LABS: A/G RATIO 1.2 (0.9-1.6); ALANINE AMINOTRANSFERASE,ALT 16 IU/L (14-63); ALBUMIN 4.1 g/dL (3.4-5.0); ALKALINE PHOSPHATASE 81 U/L (46-116); ASPARTATE AMNIOTRANSFERASE,AST 9 IU/L (15-37); BLOOD UREA NITROGEN,BUN 12 mg/dL (7.0-18.0); CALCIUM 9.3 mg/dL (8.5-10.1); CARBON DIOXIDE,CO2 23.5 mmol/L (21.0-32.0); CHLORIDE,CL 102 mmol/L (98-107); CREATININE 0.8 mg/dL (0.6-1.0); GLUCOSE RANDOM 106 mg/dL (74-106); POTASSIUM,K 3.9 mmol/L (3.5-5.1); PROTEIN TOTAL,TP 7.5 g/dL (6.4-8.2); SODIUM,NA 140 mmol/L (136-145)
[2023-01-16 18:21] LABS: ESTIMATED GFR 99 mL/min (>60)
== END 2023-01-16 19:06 | disposition home or self-care (01) ==
LOC: MW.ED 16:44
DX: N30.01 Acute cystitis with hematuria (principal); I10 Essential (primary) hypertension; Z79.899 Other long term (current) drug therapy; Z91.018 Allergy to other foods; Z91.040 Latex allergy status
CPT/HCPCS: 36415; 80053; 85025; 96361; 96374; 96375; 99283; J2405; J2765; J3010; J7030

== ENCOUNTER 2023-01-19 16:47 | Emergency (ER) | payer BC ==
[2023-01-19] MEDS ORDERED: Sodium Chloride 0.9% 10 ML Syringe FLUSH PRN (19:20)
[2023-01-19] MEDS ORDERED: fentaNYL 50 MCG/ML SDV IVPUSH STA ×3 (19:20→21:56)
[2023-01-19] MEDS ORDERED: Sodium Chloride 0.9% 1,000 ML IV STA (19:20)
[2023-01-19] MEDS ORDERED: Sodium Chloride 0.9% 2.5 ML Syringe FLUSH PRN (19:20)
[2023-01-19 20:02] LABS: HEMATOCRIT 40.3 % (36.0-46.0); HEMOGLOBIN 13.9 g/dL (12.0-16.0); MEAN CORPUSCULAR HEMOGLOBIN 31.2 pg (27.0-32.0); MEAN CORPUSCULAR HGB CONC 34.5 g/dL (31.0-37.0); MEAN CORPUSCULAR VOLUME 90.6 fL (80.0-98.0); PLATELET COUNT,PLT 288 K/uL (150-400); RED BLOOD CELL COUNT 4.45 M/uL (4.30-5.90); WHITE BLOOD CELL COUNT,WBC 5.82 K/uL (4.0-11.0)
[2023-01-19 20:16] LABS: A/G RATIO 1.3 (0.9-1.6); BILIRUBIN TOTAL 0.3 mg/dL (0.2-1.0); CALCIUM 9.4 mg/dL (8.5-10.1); CARBON DIOXIDE,CO2 27.7 mmol/L (21.0-32.0); EST CRCL DRUG DOSING (CG) 64.26 mL/min; POTASSIUM,K 3.5 mmol/L (3.5-5.1); PROTEIN TOTAL,TP 7.2 g/dL (6.4-8.2)
[2023-01-19 20:24] LABS: BAND ABSOLUTE MAN 2.4; LYMPHOCYTES ABSOLUTE MAN 2.4 (0.6-2.4); LYMPHOCYTES PERCENT MAN 42 % (16.0-40.0); MONOCYTES ABSOLUTE MAN 0.6 (0.0-0.8); MONOCYTES PERCENT MAN 11 % (0.0-15.0); SEG NEUTROPHILS ABSOLUTE MAN 2.6 (1.4-5.7); SEG NEUTROPHILS PERCENT MAN 45 % (48.0-80.0)
[2023-01-19 20:25] LABS: EOSINOPHILS ABSOLUTE MAN 0.1 (0.0-0.7); EOSINOPHILS PERCENT MAN 2 % (0.0-7.0)
[2023-01-19 20:56] LABS: CANDIDA DNA PROBE POSITIVE (NEGATIVE); GARDNERELLA DNA PROBE POSITIVE (NEGATIVE); TRICHOMONAS DNA PROBE NEGATIVE (NEGATIVE)
[2023-01-19 21:32] LABS: C. TRACHOMATIS BY PCR NOT DETECTED; N. GONORRHOEAE BY PCR NOT DETECTED
[2023-01-19] MEDS ORDERED: metroNIDAZOLE 250 MG Tab PO STA (21:55)
== END 2023-01-19 22:30 | disposition home or self-care (01) ==
LOC: MW.ED 16:47
DX: N76.0 Acute vaginitis (principal); B37.31 Acute candidiasis of vulva and vagina; I10 Essential (primary) hypertension; Z91.040 Latex allergy status; Z91.018 Allergy to other foods
CPT/HCPCS: 36415; 76856; 80053; 84702; 85007; 85027; 87480; 87491; 87510; 87591; 87660; 96361; 96374; 96376; 99284; A9270; J3010; J3490; J7030; 99283

== ENCOUNTER 2023-01-22 18:35 | Emergency (ER) | payer BC ==
[2023-01-22 19:56] LABS: GLUCOSE,URINE NEGATIVE (NEGATIVE); KETONES,URINE 15 mg/dL (NEGATIVE); LEUKOCYTE ESTERASE,URINE NEGATIVE (NEGATIVE); NITRITE,URINE POSITIVE (NEGATIVE); OCCULT BLOOD,URINE LARGE (NEGATIVE); PH,URINE 7.5 (5.0-8.0); PROTEIN,URINE 100 mg/dL (NEGATIVE); UROBILINOGEN,URINE 0.2 EU/dL (<2.0)
[2023-01-22 20:02] LABS: APPEARANCE,URINE SLT CLOUDY; BILIRUBIN,URINE SMALL (NEGATIVE); COLOR,URINE BROWN
[2023-01-22 20:11] LABS: BACTERIA,URINE FEW (NEGATIVE); EPITHELIAL CELLS,URINE NOT SEEN (NONE-FEW); RBC,URINE 75-100 (0-2/HPF)
[2023-01-22 20:12] LABS: YEAST,URINE FEW
[2023-01-22] MEDS ORDERED: Sulfamethoxazole/Trimethoprim 800-160 MG Tab PO ONE ×2 (20:39)
[2023-01-22 21:36] LABS: COLOR,URINE YELLOW; GLUCOSE,URINE NEGATIVE (NEGATIVE); KETONES,URINE 15 mg/dL (NEGATIVE); LEUKOCYTE ESTERASE,URINE TRACE (NEGATIVE); NITRITE,URINE NEGATIVE (NEGATIVE); OCCULT BLOOD,URINE LARGE (NEGATIVE); PROTEIN,URINE 100 mg/dL (NEGATIVE); UROBILINOGEN,URINE 0.2 EU/dL (<2.0)
[2023-01-22 21:47] LABS: APPEARANCE,URINE CLOUDY; BILIRUBIN,URINE SMALL (NEGATIVE)
[2023-01-22 21:49] LABS: EPITHELIAL CELLS,URINE OCCASIONAL (NONE-FEW); RBC,URINE TOO NUMEROUS TO CT (0-2/HPF)
[2023-01-22 21:50] LABS: BACTERIA,URINE 1+ (NEGATIVE)
== END 2023-01-22 22:15 | disposition home or self-care (01) ==
LOC: MW.ED 18:35
DX: N30.01 Acute cystitis with hematuria (principal); R33.9 Retention of urine, unspecified; I10 Essential (primary) hypertension; Z91.018 Allergy to other foods; Z91.040 Latex allergy status
CPT/HCPCS: 51702; 74018; 81001; 81025; 99284; A9270; 99283

== ENCOUNTER 2023-08-20 15:03 | Emergency (ER) | payer BC, OTHER ==
[2023-08-20] MEDS ORDERED: Sodium Chloride 0.9% 1,000 ML IV ONE ×2 (15:19→16:05)
[2023-08-20] MEDS ORDERED: Ketorolac 30 MG/ML SDV IVPUSH ONE (15:19)
[2023-08-20] MEDS ORDERED: droPERidol 5 MG/2 ML SDV IVPUSH ONE (15:21)
[2023-08-20 15:36] LABS: GLUCOSE,URINE NEGATIVE (NEGATIVE); KETONES,URINE >=80 mg/dL (NEGATIVE); LEUKOCYTE ESTERASE,URINE NEGATIVE (NEGATIVE); NITRITE,URINE POSITIVE (NEGATIVE); OCCULT BLOOD,URINE MODERATE (NEGATIVE); PROTEIN,URINE 30 mg/dL (NEGATIVE); UROBILINOGEN,URINE 0.2 EU/dL (<2.0)
[2023-08-20 15:36] LABS: BASOPHILS ABSOLUTE AUTO 0.03 K/uL (0.00-0.20); BASOPHILS PERCENT AUTO 0.3 % (0.0-1.0); HEMATOCRIT 44.3 % (37.0-47.0); HEMOGLOBIN 15.5 g/dL (12.0-16.0); IMMATURE GRAN ABSOLUTE AUTO 0.02 K/uL (0.00-0.05); IMMATURE GRAN PERCENT AUTO 0.2 % (0.0-0.4); LYMPHOCYTES ABSOLUTE AUTO 0.67 K/uL (1.00-4.80); MEAN CORPUSCULAR HEMOGLOBIN 30.6 pg (28.0-32.0); MEAN CORPUSCULAR VOLUME 87.4 fL (83.0-99.0); MEAN PLATELET VOLUME 9.5 fL (9.4-12.3); MONOCYTES ABSOLUTE AUTO 0.41 K/uL (0.00-0.80); MONOCYTES PERCENT AUTO 4.3 % (0.0-8.0); NEUTROPHILS ABSOLUTE AUTO 8.47 K/uL (1.80-7.70); NEUTROPHILS PERCENT AUTO 88.2 % (41.0-71.0); PLATELET COUNT,PLT 334 K/uL (150-400); RED BLOOD CELL COUNT 5.07 M/uL (4.10-5.30)
[2023-08-20 15:40] LABS: BILIRUBIN,URINE SMALL (NEGATIVE)
[2023-08-20 15:41] LABS: APPEARANCE,URINE CLOUDY; COLOR,URINE DARK YELLOW
[2023-08-20 15:45] LABS: BACTERIA,URINE 2+ (NEGATIVE); EPITHELIAL CELLS,URINE FEW (NONE-FEW); RBC,URINE 0-1 (0-2/HPF); WBC,URINE 0-2 (0-5/HPF)
[2023-08-20 15:48] LABS: MUCUS,URINE LIGHT (NONE-MOD)
[2023-08-20 16:01] LABS: A/G RATIO 1.1 (0.9-1.6); ALBUMIN 4.2 g/dL (3.4-5.0); BILIRUBIN TOTAL 0.6 mg/dL (0.2-1.0); CALCIUM 9.7 mg/dL (8.5-10.1); CARBON DIOXIDE,CO2 22.3 mmol/L (21.0-32.0); CREATININE 1.1 mg/dL (0.6-1.0); EST CRCL DRUG DOSING (CG) 61.89 mL/min; MAGNESIUM 1.7 mg/dL (1.8-2.4); POTASSIUM,K 3.9 mmol/L (3.5-5.1); PROTEIN TOTAL,TP 7.9 g/dL (6.4-8.2)
[2023-08-20 16:04] LABS: LACTIC ACID 3.5 mmol/L (0.4-2.0)
[2023-08-20] MEDS ORDERED: Sodium Chloride 0.9% 1,000 ML IV STA (16:06)
[2023-08-20] MEDS ORDERED: Ondansetron 4 MG/2 ML SDV IVPUSH ONE (16:12)
[2023-08-20 16:14] LABS: CORONAVIRUS COVID-19 NAA NEGATIVE (NEGATIVE); INFLUENZA A NAA NEGATIVE (NEGATIVE); INFLUENZA B NAA NEGATIVE (NEGATIVE)
[2023-08-20] MEDS ORDERED: Ondansetron 4 MG Tab.DIS PO ONE (18:28)
== END 2023-08-20 19:04 | disposition home or self-care (01) ==
LOC: MW.ED 15:03
DX: K52.9 Noninfective gastroenteritis and colitis, unspecified (principal); I10 Essential (primary) hypertension; Z79.899 Other long term (current) drug therapy; Z20.822 Contact with and (suspected) exposure to COVID-19; Z91.040 Latex allergy status; Z88.2 Allergy status to sulfonamides; Z91.048 Other nonmedicinal substance allergy status
CPT/HCPCS: 0240U; 36415; 80053; 81001; 83605; 83690; 83735; 84703; 85025; 96361; 96374; 96375; 99284; A9270; J1790; J1885; J2405; J7030

== ENCOUNTER 2023-08-22 04:24 | Emergency (ER) | payer OTHER ==
[2023-08-22] MEDS ORDERED: Sodium Chloride 0.9% 1,000 ML IV ONE ×2 (04:36→05:28)
[2023-08-22] MEDS ORDERED: Ondansetron 4 MG/2 ML SDV IVPUSH ONE (04:37)
[2023-08-22 04:42] LABS: BASOPHILS ABSOLUTE AUTO 0.02 K/uL (0.00-0.20); BASOPHILS PERCENT AUTO 0.2 % (0.0-1.0); EOSINOPHILS ABSOLUTE AUTO 0.03 K/uL (0.00-0.45); EOSINOPHILS PERCENT AUTO 0.3 % (0.0-6.0); HEMATOCRIT 38.7 % (37.0-47.0); HEMOGLOBIN 13.9 g/dL (12.0-16.0); IMMATURE GRAN ABSOLUTE AUTO 0.03 K/uL (0.00-0.05); IMMATURE GRAN PERCENT AUTO 0.3 % (0.0-0.4); LYMPHOCYTES ABSOLUTE AUTO 1.59 K/uL (1.00-4.80); LYMPHOCYTES PERCENT AUTO 15.2 % (24.0-44.0); MEAN CORPUSCULAR HEMOGLOBIN 31.2 pg (28.0-32.0); MEAN CORPUSCULAR HGB CONC 35.9 g/dL (32.0-36.0); MEAN CORPUSCULAR VOLUME 86.8 fL (83.0-99.0); MEAN PLATELET VOLUME 9.1 fL (9.4-12.3); MONOCYTES PERCENT AUTO 11.5 % (0.0-8.0); NEUTROPHILS ABSOLUTE AUTO 7.57 K/uL (1.80-7.70); NEUTROPHILS PERCENT AUTO 72.5 % (41.0-71.0); PLATELET COUNT,PLT 335 K/uL (150-400); RED BLOOD CELL COUNT 4.46 M/uL (4.10-5.30); WHITE BLOOD CELL COUNT,WBC 10.44 K/uL (3.9-11.3)
[2023-08-22 04:59] LABS: A/G RATIO 1.2 (0.9-1.6); ALBUMIN 3.7 g/dL (3.4-5.0); BILIRUBIN TOTAL 0.3 mg/dL (0.2-1.0); CALCIUM 8.5 mg/dL (8.5-10.1); CARBON DIOXIDE,CO2 23.9 mmol/L (21.0-32.0); CREATININE 0.8 mg/dL (0.6-1.0); EST CRCL DRUG DOSING (CG) 85.25 mL/min; POTASSIUM,K 3.5 mmol/L (3.5-5.1); PROTEIN TOTAL,TP 6.9 g/dL (6.4-8.2)
[2023-08-22] MEDS ORDERED: droPERidol 5 MG/2 ML SDV IVPUSH ONE (05:03)
[2023-08-22 05:08] LABS: LACTIC ACID 1.6 mmol/L (0.4-2.0)
[2023-08-22 05:53] LABS: BILIRUBIN,URINE NEGATIVE (NEGATIVE); COLOR,URINE YELLOW; GLUCOSE,URINE NEGATIVE (NEGATIVE); KETONES,URINE 40 mg/dL (NEGATIVE); LEUKOCYTE ESTERASE,URINE NEGATIVE (NEGATIVE); NITRITE,URINE NEGATIVE (NEGATIVE); OCCULT BLOOD,URINE MODERATE (NEGATIVE); PROTEIN,URINE NEGATIVE (NEGATIVE); UROBILINOGEN,URINE 0.2 EU/dL (<2.0)
[2023-08-22 05:56] LABS: APPEARANCE,URINE HAZY
[2023-08-22 06:01] LABS: BACTERIA,URINE FEW (NEGATIVE); MUCUS,URINE LIGHT (NONE-MOD); SQUAMOUS EPITHELIAL CELLS,UR MODERATE; WBC,URINE 0-2 (0-5/HPF)
== END 2023-08-22 06:41 | disposition home or self-care (01) ==
LOC: MW.ED 04:24
DX: E86.0 Dehydration (principal); R19.7 Diarrhea, unspecified; I10 Essential (primary) hypertension; Z79.899 Other long term (current) drug therapy; Z91.040 Latex allergy status; Z91.018 Allergy to other foods; Z88.2 Allergy status to sulfonamides; Z88.8 Allergy status to other drugs, medicaments and biological substances
CPT/HCPCS: 36415; 80053; 81001; 83605; 83690; 84703; 85025; 96361; 96374; 96375; 99284; J1790; J2405; J7030

== ENCOUNTER 2025-01-25 14:48 | Emergency (ER) | payer BC ==
[2025-01-25] MEDS ORDERED: Sodium Chloride 0.9% 20 ML SDV IV PRN (15:52)
[2025-01-25] MEDS ORDERED: Sodium Chloride 0.9% 10 ML Syringe FLUSH PRN (15:52)
[2025-01-25] MEDS ORDERED: Sodium Chloride 0.9% 2.5 ML Syringe FLUSH PRN (15:52)
[2025-01-25] MEDS ORDERED: Lactated Ringers 1,000 ML IV SCH (16:00)
[2025-01-25 16:11] LABS: BASOPHILS ABSOLUTE AUTO 0.03 K/uL (0.00-0.20); BASOPHILS PERCENT AUTO 0.6 % (0.0-1.0); EOSINOPHILS ABSOLUTE AUTO 0.19 K/uL (0.00-0.45); EOSINOPHILS PERCENT AUTO 3.6 % (0.0-6.0); HEMATOCRIT 42.2 % (37.0-47.0); HEMOGLOBIN 14.7 g/dL (12.0-16.0); IMMATURE GRAN ABSOLUTE AUTO 0.02 K/uL (0.00-0.05); IMMATURE GRAN PERCENT AUTO 0.4 % (0.0-0.4); LYMPHOCYTES ABSOLUTE AUTO 1.56 K/uL (1.00-4.80); LYMPHOCYTES PERCENT AUTO 29.8 % (24.0-44.0); MEAN CORPUSCULAR HEMOGLOBIN 31.1 pg (28.0-32.0); MEAN CORPUSCULAR HGB CONC 34.8 g/dL (32.0-36.0); MEAN CORPUSCULAR VOLUME 89.2 fL (83.0-99.0); MEAN PLATELET VOLUME 9.4 fL (9.4-12.3); MONOCYTES ABSOLUTE AUTO 0.54 K/uL (0.00-0.80); MONOCYTES PERCENT AUTO 10.3 % (0.0-8.0); NEUTROPHILS PERCENT AUTO 55.3 % (41.0-71.0); PLATELET COUNT,PLT 267 K/uL (150-400); RED BLOOD CELL COUNT 4.73 M/uL (4.10-5.30); WHITE BLOOD CELL COUNT,WBC 5.24 K/uL (3.9-11.3)
[2025-01-25] MEDS: Sodium Chloride 0.9% 1,000 ML IV ONE (16:11)
[2025-01-25 16:35] LABS: A/G RATIO 1.4 (0.9-1.6); ALBUMIN 4.1 g/dL (3.4-5.0); BILIRUBIN TOTAL 0.6 mg/dL (0.2-1.0); CALCIUM 9.7 mg/dL (8.5-10.1); CREATININE 0.9 mg/dL (0.6-1.0); EST CRCL DRUG DOSING (CG) 74.62 mL/min; POTASSIUM,K 3.7 mmol/L (3.5-5.1); PROTEIN TOTAL,TP 7.1 g/dL (6.4-8.2)
[2025-01-25 18:05] LABS: APPEARANCE,URINE SLT CLOUDY; BILIRUBIN,URINE NEGATIVE (NEGATIVE); COLOR,URINE YELLOW; GLUCOSE,URINE NEGATIVE (NEGATIVE); KETONES,URINE TRACE mg/dL (NEGATIVE); LEUKOCYTE ESTERASE,URINE NEGATIVE (NEGATIVE); NITRITE,URINE NEGATIVE (NEGATIVE); OCCULT BLOOD,URINE SMALL (NEGATIVE); PROTEIN,URINE NEGATIVE (NEGATIVE)
[2025-01-25 18:17] LABS: BACTERIA,URINE 2+ (NEGATIVE); EPITHELIAL CELLS,URINE MANY (NONE-FEW)
== END 2025-01-25 18:53 | disposition home or self-care (01) ==
LOC: MW.ED 14:48
DX: R42 Dizziness and giddiness (principal); R00.0 Tachycardia, unspecified; I10 Essential (primary) hypertension; N30.01 Acute cystitis with hematuria; F17.200 Nicotine dependence, unspecified, uncomplicated; Z88.8 Allergy status to other drugs, medicaments and biological substances; Z91.018 Allergy to other foods; Z91.040 Latex allergy status; Z79.899 Other long term (current) drug therapy; Z75.3 Unavailability and inaccessibility of health-care facilities
CPT/HCPCS: 36415; 80053; 81001; 84484; 85025; 85379; 93005; 93010; 96360; 99283; 99285-25; J7030